=== PATIENT | female | born 1945 | race Caucasian/White ===

== ENCOUNTER 2017-06-04 15:33 | Inpatient (IN) | payer MEDICARE, BC ==
[~2017-06-04] VITALS: Ht 165.1 cm; Wt 102.2 kg
[~2017-06-04 15:33] MED LIST: ABAC300; ALBU90OI61 INH; ALKA-SELTZER D1 EACH PO; ASPI325 PO; ASPI325EC PO; ASPI81EC PO; ATEN100 PO; ATEN25 PO; ATEN50 PO; ATOR10 PO; ATOR40TA PO; AZIT250 PO; Accupril40 MG PO; Augmentin 875-1 EACH PO; BENADRYL25 MG PO; BENZ100A PO; BUTASPCAFT PO; CEPH500 PO; CHOL10002; CIPR500 PO; CITA20 PO; CLON.1 PO; CLON1 PO; COLE1 PO; CYCL10 PO; Catapres0.1 MG PO; Colace100 MG PO; Crutch1 EACH MISC; Cyclobenzaprine5 MG PO; DICL75ER PO; DOCU100 PO; FERR325 PO; FURO40 PO; GABA300 PO; HYDCHL25 PO; HYDCOR1TO TOP; HYDR-86; HYDR1TAB94 PO; LISI5 PO; LORA.5 PO; MELO7.5 PO; METCAR500 PO; METR500 PO; MORP30 PO; Macrobid 100 M100 MG PO; Mobic15 MG PO; NIFE30ER PO; Nifedical Xl30 MG PO; Norco 5-325 Ta1 EACH PO; OMEP20ER PO; ONDA4ODT MM; OXYACE5T PO; Omeprazole20 M1; Omeprazole20 M1 PO; PANT20 PO; POTCHL10ER PO; PRAV20 PO; PRED10 PO; PRED20 PO; PROM25 PO; PYRI100 PO; Pepcid20 MG PO; Percocet 5-3251 EACH PO; Prednisone50 MG PO; Prinivil10 MG PO; QUIN10 PO; TRAZ50 PO; TRIA80TC TOP; VICODIN 5-3001 EACH PO; WARF5 PO; XARELTO20 MG PO; ZOLP10 PO; Zithromax250 MG PO
[2017-06-04 16:01] LABS: BASOPHILS ABSOLUTE AUTO 0.05 K/mm3 (0.00-0.23); BASOPHILS PERCENT AUTO 1 % (0-2); EOSINOPHILS ABSOLUTE AUTO 0.33 K/mm3 (0.00-0.68); EOSINOPHILS PERCENT AUTO 3 % (0-6); IMMATURE GRAN ABSOLUTE AUTO 0.08 K/mm3 (0.00-0.10); IMMATURE GRAN PERCENT AUTO 1 % (0-1); LYMPHOCYTES PERCENT AUTO 13 % (21-46); MONOCYTES ABSOLUTE AUTO 0.52 K/mm3 (0.16-1.47); MONOCYTES PERCENT AUTO 5 % (4-13); Mean Corpuscular HGB 31.8 pg (26.0-34.0); Mean Corpuscular HGB Conc 30.8 g/dL (31.5-36.5); Mean Corpuscular Volume 103 fL (80-100); NEUTROPHILS ABSOLUTE AUTO 7.81 K/mm3 (1.96-9.15); NEUTROPHILS PERCENT AUTO 77 % (41-73); Platelet Count 263 K/mm3 (150-400); RDW Coefficient Variation 14.6 % (11.7-14.2); RDW Standard Deviation 55.1 fL (35.1-46.3); Red Blood Cell Count 3.77 M/mm3 (3.80-5.20); White Blood Cell Count 10.09 K/mm3 (4.00-11.30)
[2017-06-04 16:20] LABS: Albumin, Blood 3.9 g/dL (3.4-5.0); Albumin/Globulin Ratio 1.1 (0.8-1.8); Bilirubin, Total 1.1 mg/dL (0.1-1.0); Bun/Creatinine Ratio 20.9 (12.0-20.0); Calcium, Blood 8.7 mg/dL (8.5-10.1); Creatinine, Blood 2.82 mg/dL (0.40-1.00); Globulin, Blood 3.7 g/dL (2.2-4.0); Potassium, Blood 4.3 mmol/L (3.5-5.5); Total Protein, Blood 7.6 g/dL (6.4-8.2)
[2017-06-04 17:23] LABS: Source, Urine Clean Catch
[2017-06-04 17:26] LABS: Appearance, Urine Hazy (Clear); Bilirubin, Urine Neg (Neg); Blood, Urine Neg (Neg); Color, Urine Yellow (P-Yellow); Glucose Qualitative, Urine Neg (Neg); Ketones, Urine Neg (Neg); Leukocyte Esterase, Urine 3+ (Neg); Nitrite, Urine Neg (Neg); Protein, Urine Neg (Neg); Specific Gravity, Urine 1.015 (1.003-1.022); Urobilinogen, Urine NORM (Normal)
[2017-06-04 17:33] LABS: Red Blood Cells, Urine 0-2 /hpf (0-2)
[2017-06-04 17:34] LABS: Bacteria Mod /hpf; Squamous Epithelial Cells Many /hpf (Few)
[2017-06-04 21:28] LABS: Thyroid Stimulating Hormone 3.71 uIU/mL (0.360-4.800)
[2017-06-05 04:28] LABS: Hematocrit 31.4 % (33.0-51.0); Hemoglobin 9.8 g/dL (11.5-16.0)
[2017-06-05 04:54] LABS: Magnesium, Blood 2.6 mg/dL (1.6-2.4)
[2017-06-05 04:56] LABS: Albumin, Blood 2.9 g/dL (3.4-5.0); Anion Gap 11 mmol/L (6-16); Blood Urea Nitrogen 48 mg/dL (8-24); Bun/Creatinine Ratio 22.2 (12.0-20.0); CO2, Blood 21 mmol/L (21-32); Chloride, Blood 110 mmol/L (98-108); Creatinine, Blood 2.16 mg/dL (0.40-1.00); Glomerular Filtration Rate 24 (60-); Glucose, Blood 98 mg/dL (70-99); Phosphorus, Blood 4.4 mg/dL (2.5-4.9); Potassium, Blood 4.4 mmol/L (3.5-5.5); Sodium, Blood 142 mmol/L (136-145)
[2017-06-05] MEDS ORDERED: GUAI600T33 PO (10:22)
[2017-06-05] MEDS ORDERED: LORA.5 PO (10:33)
[2017-06-05] MEDS ORDERED: DIVA500ER PO (10:35)
[2017-06-05] MEDS ORDERED: CLON.1 PO (10:39)
[2017-06-05 15:32] LABS: Valproic Acid 28.2 ug/mL (50.0-100.0)
[2017-06-06 07:15] LABS: Albumin, Blood 2.8 g/dL (3.4-5.0); Anion Gap 5 mmol/L (6-16); Blood Urea Nitrogen 32 mg/dL (8-24); Bun/Creatinine Ratio 24.1 (12.0-20.0); CO2, Blood 24 mmol/L (21-32); Calcium, Blood 8.5 mg/dL (8.5-10.1); Chloride, Blood 114 mmol/L (98-108); Creatinine, Blood 1.33 mg/dL (0.40-1.00); Glomerular Filtration Rate 41 (60-); Glucose, Blood 119 mg/dL (70-99); Magnesium, Blood 2.5 mg/dL (1.6-2.4); Phosphorus, Blood 2.7 mg/dL (2.5-4.9); Potassium, Blood 5.3 mmol/L (3.5-5.5); Sodium, Blood 143 mmol/L (136-145)
[2017-06-07 05:04] LABS: Hematocrit 34.2 % (33.0-51.0); Hemoglobin 11.1 g/dL (11.5-16.0)
[2017-06-07 05:34] LABS: Albumin, Blood 2.9 g/dL (3.4-5.0); Anion Gap 7 mmol/L (6-16); Blood Urea Nitrogen 23 mg/dL (8-24); Bun/Creatinine Ratio 21.1 (12.0-20.0); CO2, Blood 24 mmol/L (21-32); Calcium, Blood 8.6 mg/dL (8.5-10.1); Chloride, Blood 112 mmol/L (98-108); Creatinine, Blood 1.09 mg/dL (0.40-1.00); Glomerular Filtration Rate 52 (60-); Glucose, Blood 87 mg/dL (70-99); Magnesium, Blood 2.3 mg/dL (1.6-2.4); Phosphorus, Blood 2.4 mg/dL (2.5-4.9); Potassium, Blood 5.3 mmol/L (3.5-5.5); Sodium, Blood 143 mmol/L (136-145)
[2017-06-08 06:32] LABS: Albumin, Blood 3.2 g/dL (3.4-5.0); Anion Gap 6 mmol/L (6-16); Blood Urea Nitrogen 18 mg/dL (8-24); Bun/Creatinine Ratio 16.2 (12.0-20.0); CO2, Blood 28 mmol/L (21-32); Calcium, Blood 8.9 mg/dL (8.5-10.1); Chloride, Blood 106 mmol/L (98-108); Creatinine, Blood 1.11 mg/dL (0.40-1.00); Glomerular Filtration Rate 51 (60-); Glucose, Blood 108 mg/dL (70-99); Magnesium, Blood 2.3 mg/dL (1.6-2.4); Phosphorus, Blood 3.6 mg/dL (2.5-4.9); Potassium, Blood 4.9 mmol/L (3.5-5.5); Sodium, Blood 140 mmol/L (136-145)
[2017-06-09 04:56] LABS: Hematocrit 35.9 % (33.0-51.0); Hemoglobin 11.9 g/dL (11.5-16.0)
[2017-06-09 05:22] LABS: Albumin, Blood 2.9 g/dL (3.4-5.0); Anion Gap 9 mmol/L (6-16); Blood Urea Nitrogen 18 mg/dL (8-24); Bun/Creatinine Ratio 17.1 (12.0-20.0); CO2, Blood 24 mmol/L (21-32); Calcium, Blood 8.8 mg/dL (8.5-10.1); Chloride, Blood 107 mmol/L (98-108); Creatinine, Blood 1.05 mg/dL (0.40-1.00); Glomerular Filtration Rate 54 (60-); Glucose, Blood 90 mg/dL (70-99); Magnesium, Blood 2.4 mg/dL (1.6-2.4); Phosphorus, Blood 3.8 mg/dL (2.5-4.9); Potassium, Blood 4.7 mmol/L (3.5-5.5); Sodium, Blood 140 mmol/L (136-145)
[2017-06-09] MEDS ORDERED: Tylenol325 MG PO (11:01)
[2017-06-09] MEDS ORDERED: Esgic Tablet1 EACH PO (11:02)
== END 2017-06-09 16:12 | disposition home or self-care (01) | DRG 682 ==
LOC: ER 15:33 → MEDS 15:34 → ENPENDDIS 06-09 09:52 → MEDS 06-09 16:12
PROVIDERS: Emergency Medicine; Family Medicine; Internal Medicine; Internal Medicine Nephrology
DX: N17.0 Acute kidney failure with tubular necrosis (principal); G93.41 Metabolic encephalopathy; I50.32 Chronic diastolic (congestive) heart failure; I13.0 Hypertensive heart and chronic kidney disease with heart failure and stage 1 through stage 4 chronic kidney disease, or unspecified chronic kidney disease; E88.09 Other disorders of plasma-protein metabolism, not elsewhere classified; E83.41 Hypermagnesemia; E83.39 Other disorders of phosphorus metabolism; D63.1 Anemia in chronic kidney disease; N18.3 Chronic kidney disease, stage 3 (moderate); D75.89 Other specified diseases of blood and blood-forming organs; R55 Syncope and collapse; R82.71 Bacteriuria; G89.29 Other chronic pain; M54.5 Low back pain; L25.9 Unspecified contact dermatitis, unspecified cause; Z90.49 Acquired absence of other specified parts of digestive tract; Z90.710 Acquired absence of both cervix and uterus; Z96.612 Presence of left artificial shoulder joint; Z96.611 Presence of right artificial shoulder joint; Z86.73 Personal history of transient ischemic attack (TIA), and cerebral infarction without residual deficits; Z79.02 Long term (current) use of antithrombotics/antiplatelets
CPT/HCPCS: 36415; 71046; 76770; 80048; 80053; 80069; 80164; 81001; 82607; 82746; 83735; 84443; 84484; 85014; 85018; 85025; 86850; 86900; 86901; 87086; 93005; 93010; 94760; 96361; 96365; 96376; 97116; 97161; 97166; 97530; 97535; 99285; G0378; G0515; G8978; G8979; G8987; G8988; J0696; J7030; J7060

== ENCOUNTER 2017-09-06 09:29 | Day surgery (SDC) | payer MEDICARE, BC ==
[2017-09-04 16:44] LABS: BASOPHILS ABSOLUTE AUTO 0.04 K/mm3 (0.00-0.23); BASOPHILS PERCENT AUTO 1 % (0-2); EOSINOPHILS ABSOLUTE AUTO 0.34 K/mm3 (0.00-0.68); EOSINOPHILS PERCENT AUTO 6 % (0-6); Hemoglobin 12.1 g/dL (11.5-16.0); IMMATURE GRAN ABSOLUTE AUTO 0.02 K/mm3 (0.00-0.10); IMMATURE GRAN PERCENT AUTO 0 % (0-1); LYMPHOCYTES ABSOLUTE AUTO 1.03 K/mm3 (0.84-5.20); LYMPHOCYTES PERCENT AUTO 17 % (21-46); MONOCYTES ABSOLUTE AUTO 0.57 K/mm3 (0.16-1.47); MONOCYTES PERCENT AUTO 9 % (4-13); Mean Corpuscular HGB Conc 32.7 g/dL (31.5-36.5); Mean Corpuscular Volume 98 fL (80-100); Mean Platelet Volume 9.9 fL (9.1-12.4); NEUTROPHILS ABSOLUTE AUTO 4.07 K/mm3 (1.96-9.15); NEUTROPHILS PERCENT AUTO 67 % (41-73); Platelet Count 209 K/mm3 (150-400); RDW Coefficient Variation 13.4 % (11.7-14.2); RDW Standard Deviation 47.7 fL (35.1-46.3); Red Blood Cell Count 3.78 M/mm3 (3.80-5.20); White Blood Cell Count 6.07 K/mm3 (4.00-11.30)
[2017-09-04 16:57] LABS: Prothrombin Time Results 10.3 Sec (9.7-11.5)
[2017-09-04 17:08] LABS: Albumin, Blood 3.7 g/dL (3.4-5.0); Albumin/Globulin Ratio 1.1 (0.8-1.8); Bilirubin, Total 1.4 mg/dL (0.1-1.0); Bun/Creatinine Ratio 16.2 (12.0-20.0); Calcium, Blood 9.2 mg/dL (8.5-10.1); Creatinine, Blood 1.17 mg/dL (0.40-1.00); Globulin, Blood 3.5 g/dL (2.2-4.0); Potassium, Blood 4.2 mmol/L (3.5-5.5); Total Protein, Blood 7.2 g/dL (6.4-8.2)
[~2017-09-06 09:29] MED LIST changes: +DIVA500ER PO; +Esgic Tablet1 EACH PO; +GUAI600T33 PO; +Tylenol325 MG PO
== END 2017-09-06 22:38 | disposition home or self-care (01) ==
LOC: RAD 09:29 → CT 10:00 → RAD 22:38 → MOI MRI 09-11 14:00 → CT 09-21 10:00 → EDSTATUS 09-21 10:00
PROVIDERS: Internal Medicine Hematology & Oncology
PROC: BR29YZZ Computerized Tomography (CT Scan) of Lumbar Spine using Other Contrast (ICD-10-PCS; principal; 2017-09-06)
DX: M47.26 Other spondylosis with radiculopathy, lumbar region (principal); D68.9 Coagulation defect, unspecified; M48.061 Spinal stenosis, lumbar region without neurogenic claudication; M43.16 Spondylolisthesis, lumbar region; Z87.891 Personal history of nicotine dependence
CPT/HCPCS: 36415; 62304; 72132; 80053; 85025; 85610; 85730; Q9966

== ENCOUNTER → 2018-02-27 | Outpatient (CLI) | payer MEDICARE, BC ==
[~2018-02-27] MED LIST changes: +ACID REDUCER20 MG PO; +ALBU90OI INH; +Advair Hfa 230-12 GM INH; +BACL10 PO; +DELTASONE20 MG PO; +LIOT5 PO; +OXYC10TA19 PO; +PROM25
== END | disposition home or self-care (01) ==
LOC: LAB SHORT 10:00 → LAB 10:00
DX: R19.7 Diarrhea, unspecified (principal)
CPT/HCPCS: 87493

== ENCOUNTER 2018-03-01 14:47 | Emergency (ER) | payer MEDICARE, BC ==
[~2018-03-01] VITALS: Ht 160 cm; Wt 90.7 kg
[~2018-03-01 14:47] MED LIST changes: -ACID REDUCER20 MG PO; -PROM25
[2018-03-01] MEDS ORDERED: TRAZ50 PO (15:34)
[2018-03-01] MEDS ORDERED: BACL10 PO (15:35)
[2018-03-01] MEDS ORDERED: PROM25 (15:35)
[2018-03-01 15:44] LABS: BASOPHILS ABSOLUTE AUTO 0.05 K/mm3 (0.00-0.23); BASOPHILS PERCENT AUTO 1 % (0-2); EOSINOPHILS ABSOLUTE AUTO 0.25 K/mm3 (0.00-0.68); EOSINOPHILS PERCENT AUTO 2 % (0-6); Hematocrit 40.9 % (33.0-51.0); IMMATURE GRAN ABSOLUTE AUTO 0.06 K/mm3 (0.00-0.10); IMMATURE GRAN PERCENT AUTO 1 % (0-1); LYMPHOCYTES ABSOLUTE AUTO 1.35 K/mm3 (0.84-5.20); LYMPHOCYTES PERCENT AUTO 13 % (21-46); MONOCYTES PERCENT AUTO 6 % (4-13); Mean Corpuscular HGB 29.9 pg (26.0-34.0); Mean Corpuscular HGB Conc 31.8 g/dL (31.5-36.5); Mean Corpuscular Volume 94 fL (80-100); NEUTROPHILS ABSOLUTE AUTO 7.97 K/mm3 (1.96-9.15); NEUTROPHILS PERCENT AUTO 78 % (41-73); Platelet Count 244 K/mm3 (150-400); RDW Coefficient Variation 15.9 % (11.7-14.2); RDW Standard Deviation 54.1 fL (35.1-46.3); Red Blood Cell Count 4.35 M/mm3 (3.80-5.20); White Blood Cell Count 10.28 K/mm3 (4.00-11.30)
[2018-03-01 16:00] LABS: Alanine Aminotransfer (ALT/SGP 36 U/L (12-78); Albumin, Blood 3.9 g/dL (3.4-5.0); Alk Phos 127 U/L (50-136); Anion Gap 8 mmol/L (6-16); Aspartate Aminotrans (AST/SGOT 25 U/L (12-37); Blood Urea Nitrogen 15 mg/dL (8-24); Bun/Creatinine Ratio 13.2 (12.0-20.0); CO2, Blood 22 mmol/L (21-32); Calcium, Blood 9.5 mg/dL (8.5-10.1); Chloride, Blood 113 mmol/L (98-108); Creatinine, Blood 1.14 mg/dL (0.40-1.00); Glomerular Filtration Rate 49 (60-); Glucose, Blood 85 mg/dL (70-99); Potassium, Blood 4.2 mmol/L (3.5-5.5); Sodium, Blood 143 mmol/L (136-145); Total Protein, Blood 7.9 g/dL (6.4-8.2); Troponin I <0.015 ng/mL (0.000-0.040)
[2018-03-01 16:32] LABS: Source, Urine Clean Catch
[2018-03-01 16:38] LABS: Bilirubin, Urine Neg (Neg); Blood, Urine 1+ (Neg); Glucose Qualitative, Urine Neg (Neg); Ketones, Urine Neg (Neg); Leukocyte Esterase, Urine Neg (Neg); Nitrite, Urine Neg (Neg); Protein, Urine 2+ (Neg); Urobilinogen, Urine NORM (Normal)
[2018-03-01 16:53] LABS: Appearance, Urine Clear (Clear); Color, Urine Yellow (P-Yellow)
[2018-03-01 16:55] LABS: Bacteria Not Seen /hpf; Red Blood Cells, Urine Not Seen /hpf (0-2); Squamous Epithelial Cells Few /hpf (Few); White Blood Cells, Urine 0-2 /hpf (0-5)
[2018-03-01] MEDS ORDERED: ACID REDUCER20 MG PO (17:26)
[2018-03-01] MEDS ORDERED: ONDA4ODT MM (17:26)
== END 2018-03-01 18:09 | disposition home or self-care (01) ==
LOC: ER 14:47
PROVIDERS: Emergency Medicine
DX: K29.70 Gastritis, unspecified, without bleeding (principal); K29.80 Duodenitis without bleeding; I10 Essential (primary) hypertension; I48.91 Unspecified atrial fibrillation; Z88.2 Allergy status to sulfonamides; Z91.048 Other nonmedicinal substance allergy status; Z91.040 Latex allergy status; Z88.8 Allergy status to other drugs, medicaments and biological substances; Z79.899 Other long term (current) drug therapy
CPT/HCPCS: 36415; 73562-RT; 74177; 80053; 81001; 83690; 84484; 85025; 96361; 96374; 96375; 99284-25; J2405; J3010; J7030; Q9967

== ENCOUNTER 2018-04-10 09:10 | Day surgery (SDC) | payer MEDICARE, BC ==
[~2018-04-10] VITALS: Ht 162.6 cm; Wt 91.3 kg
[~2018-04-10 09:10] MED LIST changes: +ACID REDUCER20 MG PO; +PROM25
[2018-04-10] MEDS ORDERED: CLON.1 (10:27)
[2018-04-10] MEDS ORDERED: FURO40 (10:27)
[2018-04-10] MEDS ORDERED: Prinivil10 MG (10:28)
== END 2018-04-10 12:30 | disposition home or self-care (01) ==
LOC: ORSCSDS 09:10
PROVIDERS: Internal Medicine Gastroenterology
PROC: 0DB98ZX Excision of Duodenum, Via Natural or Artificial Opening Endoscopic, Diagnostic (ICD-10-PCS; principal; 2018-04-10 10:30)
PROC: 0DBE8ZX Excision of Large Intestine, Via Natural or Artificial Opening Endoscopic, Diagnostic (ICD-10-PCS; principal; 2018-04-10 10:30)
PROC: 0DBL8ZX Excision of Transverse Colon, Via Natural or Artificial Opening Endoscopic, Diagnostic (ICD-10-PCS; principal; 2018-04-10 10:30)
PROC: 0DB68ZX Excision of Stomach, Via Natural or Artificial Opening Endoscopic, Diagnostic (ICD-10-PCS; principal; 2018-04-10 10:30)
DX: R19.7 Diarrhea, unspecified (principal); D12.3 Benign neoplasm of transverse colon; K64.8 Other hemorrhoids; K57.30 Diverticulosis of large intestine without perforation or abscess without bleeding; R10.9 Unspecified abdominal pain; R63.4 Abnormal weight loss; Z86.010 Personal history of colon polyps; Z86.718 Personal history of other venous thrombosis and embolism; I10 Essential (primary) hypertension; Z96.89 Presence of other specified functional implants; I69.354 Hemiplegia and hemiparesis following cerebral infarction affecting left non-dominant side; F41.8 Other specified anxiety disorders; Z87.891 Personal history of nicotine dependence; Z79.899 Other long term (current) drug therapy
CPT/HCPCS: 88305; 88342; J7120

== ENCOUNTER 2018-06-07 09:48 | Emergency (ER) | payer MEDICARE, BC ==
[~2018-06-07] VITALS: Ht 162.6 cm; Wt 89.8 kg
[~2018-06-07 09:48] MED LIST changes: +CLON.1; +FURO40; +LIDO700A20 TOP; +Prinivil10 MG; +Roxicodone5 MG PO
[2018-06-07] MEDS ORDERED: ACYC800 PO (11:37)
[2018-06-07] MEDS ORDERED: Neurontin 300300 MG PO (11:37)
[2018-06-07] MEDS ORDERED: Percocet 10-321 EACH PO (11:37)
== END 2018-06-07 11:51 | disposition home or self-care (01) ==
LOC: ER 09:48
DX: B01.9 Varicella without complication (principal); B02.9 Zoster without complications; Z88.2 Allergy status to sulfonamides; Z91.040 Latex allergy status; Z88.8 Allergy status to other drugs, medicaments and biological substances; Z79.899 Other long term (current) drug therapy; I10 Essential (primary) hypertension; I48.91 Unspecified atrial fibrillation
CPT/HCPCS: 96374; 96375; 99284-25; J1170; J2405

== ENCOUNTER 2018-07-05 13:43 | Emergency (ER) | payer MEDICARE, BC ==
[~2018-07-05] VITALS: Ht 160 cm; Wt 90.7 kg
[~2018-07-05 13:43] MED LIST changes: +ACYC800 PO; +Neurontin 300300 MG PO; +Percocet 10-321 EACH PO
[2018-07-05 14:29] LABS: BASOPHILS ABSOLUTE AUTO 0.03 K/mm3 (0.00-0.23); BASOPHILS PERCENT AUTO 0 % (0-2); EOSINOPHILS ABSOLUTE AUTO 0.03 K/mm3 (0.00-0.68); EOSINOPHILS PERCENT AUTO 0 % (0-6); Hematocrit 38.5 % (33.0-51.0); Hemoglobin 12.7 g/dL (11.5-16.0); IMMATURE GRAN ABSOLUTE AUTO 0.14 K/mm3 (0.00-0.10); IMMATURE GRAN PERCENT AUTO 2 % (0-1); LYMPHOCYTES ABSOLUTE AUTO 0.57 K/mm3 (0.84-5.20); LYMPHOCYTES PERCENT AUTO 7 % (21-46); MONOCYTES ABSOLUTE AUTO 0.12 K/mm3 (0.16-1.47); MONOCYTES PERCENT AUTO 2 % (4-13); Mean Corpuscular HGB 33.6 pg (26.0-34.0); Mean Corpuscular Volume 102 fL (80-100); Mean Platelet Volume 10.3 fL (9.1-12.4); NEUTROPHILS ABSOLUTE AUTO 7.16 K/mm3 (1.96-9.15); NEUTROPHILS PERCENT AUTO 89 % (41-73); Platelet Count 239 K/mm3 (150-400); RDW Coefficient Variation 13.1 % (11.7-14.2); RDW Standard Deviation 49.2 fL (35.1-46.3); Red Blood Cell Count 3.78 M/mm3 (3.80-5.20); White Blood Cell Count 8.05 K/mm3 (4.00-11.30)
[2018-07-05] MEDS ORDERED: OXYC10TA19 PO (14:44)
[2018-07-05] MEDS ORDERED: TRAZ50 PO (14:45)
[2018-07-05] MEDS ORDERED: LIOT5 PO (14:45)
[2018-07-05] MEDS ORDERED: DOXY100T53 PO (14:46)
[2018-07-05] MEDS ORDERED: ALBU90OI INH ×2 (14:46→15:53)
[2018-07-05] MEDS ORDERED: ATEN100 PO (14:46)
[2018-07-05] MEDS ORDERED: PRED20 PO (14:47)
[2018-07-05 15:10] LABS: Albumin, Blood 3.7 g/dL (3.4-5.0); Albumin/Globulin Ratio 0.9 (0.8-1.8); Bilirubin, Total 0.6 mg/dL (0.1-1.0); Bun/Creatinine Ratio 23.1 (12.0-20.0); Calcium, Blood 9.5 mg/dL (8.5-10.1); Creatinine, Blood 1.08 mg/dL (0.40-1.00); Globulin, Blood 4.1 g/dL (2.2-4.0); Potassium, Blood 4.6 mmol/L (3.5-5.5); Total Protein, Blood 7.8 g/dL (6.4-8.2)
[2018-07-05] MEDS ORDERED: Aerochamber1 EACH INH (15:53)
[2018-07-05] MEDS ORDERED: Prednisone20 MG PO (16:21)
== END 2018-07-05 17:00 | disposition home or self-care (01) ==
LOC: ER 13:43
PROVIDERS: Physician Assistant
DX: J40 Bronchitis, not specified as acute or chronic (principal); I10 Essential (primary) hypertension; I48.91 Unspecified atrial fibrillation; Z87.891 Personal history of nicotine dependence
CPT/HCPCS: 36415; 71046; 80053; 83880; 84145; 84484; 85025; 93005; 93010; 94640; 94645; 99285-25; J7120

== ENCOUNTER 2020-05-19 11:45 | Emergency (ER) | payer MEDICARE, BC ==
[~2020-05-19] VITALS: Ht 160 cm; Wt 87.1 kg
[~2020-05-19 11:45] MED LIST changes: +Aerochamber1 EACH INH; +DOXY100T53 PO; +Prednisone20 MG PO
[2020-05-19] MEDS ORDERED: TRAZ100 PO (11:55)
[2020-05-19] MEDS ORDERED: CALC.25 PO (11:56)
[2020-05-19] MEDS ORDERED: OXYC5 PO (11:56)
[2020-05-19 12:57] LABS: BASOPHILS ABSOLUTE AUTO 0.05 K/mm3 (0.00-0.23); BASOPHILS PERCENT AUTO 1 % (0-2); EOSINOPHILS ABSOLUTE AUTO 0.08 K/mm3 (0.00-0.68); EOSINOPHILS PERCENT AUTO 1 % (0-6); Hematocrit 34.9 % (33.0-51.0); Hemoglobin 10.8 g/dL (11.5-16.0); IMMATURE GRAN ABSOLUTE AUTO 0.02 K/mm3 (0.00-0.10); IMMATURE GRAN PERCENT AUTO 0 % (0-1); LYMPHOCYTES ABSOLUTE AUTO 1.35 K/mm3 (0.84-5.20); LYMPHOCYTES PERCENT AUTO 16 % (21-46); MONOCYTES ABSOLUTE AUTO 1.02 K/mm3 (0.16-1.47); MONOCYTES PERCENT AUTO 12 % (4-13); Mean Corpuscular HGB 28.8 pg (26.0-34.0); Mean Corpuscular HGB Conc 30.9 g/dL (31.5-36.5); Mean Corpuscular Volume 93 fL (80-100); Mean Platelet Volume 11.1 fL (9.1-12.4); NEUTROPHILS ABSOLUTE AUTO 6.16 K/mm3 (1.96-9.15); NEUTROPHILS PERCENT AUTO 71 % (41-73); Platelet Count 265 K/mm3 (150-400); RDW Standard Deviation 51.4 fL (35.1-46.3); Red Blood Cell Count 3.75 M/mm3 (3.80-5.20); White Blood Cell Count 8.68 K/mm3 (4.00-11.30)
[2020-05-19 13:04] LABS: Alanine Aminotransfer (ALT/SGP 13 U/L (12-78); Albumin/Globulin Ratio 0.8 (0.8-1.8); Alk Phos 98 U/L (50-136); Anion Gap 6 mmol/L (6-16); Aspartate Aminotrans (AST/SGOT 20 U/L (12-37); Bilirubin, Total 0.6 mg/dL (0.1-1.0); Blood Urea Nitrogen 14 mg/dL (8-24); Bun/Creatinine Ratio 12.5 (12.0-20.0); CO2, Blood 26 mmol/L (21-32); Calcium, Blood 9.1 mg/dL (8.5-10.1); Chloride, Blood 108 mmol/L (98-108); Creatinine, Blood 1.12 mg/dL (0.40-1.00); Globulin, Blood 3.8 g/dL (2.2-4.0); Glomerular Filtration Rate 50 (60-); Glucose, Blood 91 mg/dL (70-99); Potassium, Blood 3.4 mmol/L (3.5-5.5); Sodium, Blood 140 mmol/L (136-145); Total Protein, Blood 6.8 g/dL (6.4-8.2); Troponin I <0.015 ng/mL (0.000-0.040)
[2020-05-19] MEDS ORDERED: HYDR1TAB94 PO (14:57)
== END 2020-05-19 16:00 | disposition home or self-care (01) ==
LOC: ER 11:45
PROVIDERS: Emergency Medicine
DX: R07.81 Pleurodynia (principal); I11.0 Hypertensive heart disease with heart failure; I50.9 Heart failure, unspecified; I48.91 Unspecified atrial fibrillation; J44.9 Chronic obstructive pulmonary disease, unspecified; Z88.2 Allergy status to sulfonamides; Z88.8 Allergy status to other drugs, medicaments and biological substances; Z91.09 Other allergy status, other than to drugs and biological substances; Z91.040 Latex allergy status; Z79.899 Other long term (current) drug therapy; Z87.891 Personal history of nicotine dependence
CPT/HCPCS: 36415; 71045; 80053; 83880; 84484; 85025; 93005; 93010; 96374; 99285-25; A9270; J2405

== ENCOUNTER 2020-08-31 11:35 | Observation (INO) | payer MEDICARE, BC ==
[~2020-08-31] VITALS: Ht 160 cm; Wt 82.2 kg
[~2020-08-31 11:35] MED LIST changes: +CALC.25 PO; +OXYC5 PO; +TRAZ100 PO
[2020-08-31] MEDS ORDERED: FUROSEMIDE20 MG PO (11:45)
[2020-08-31 12:10] LABS: Source, Urine Catheter
[2020-08-31 12:28] LABS: BASOPHILS ABSOLUTE AUTO 0.06 K/mm3 (0.00-0.23); BASOPHILS PERCENT AUTO 1 % (0-2); EOSINOPHILS ABSOLUTE AUTO 0.21 K/mm3 (0.00-0.68); EOSINOPHILS PERCENT AUTO 4 % (0-6); Hematocrit 35.7 % (33.0-51.0); Hemoglobin 11.1 g/dL (11.5-16.0); IMMATURE GRAN ABSOLUTE AUTO 0.02 K/mm3 (0.00-0.10); IMMATURE GRAN PERCENT AUTO 0 % (0-1); LYMPHOCYTES ABSOLUTE AUTO 1.37 K/mm3 (0.84-5.20); LYMPHOCYTES PERCENT AUTO 23 % (21-46); MONOCYTES ABSOLUTE AUTO 0.45 K/mm3 (0.16-1.47); MONOCYTES PERCENT AUTO 8 % (4-13); Mean Corpuscular HGB 28.4 pg (26.0-34.0); Mean Corpuscular HGB Conc 31.1 g/dL (31.5-36.5); Mean Corpuscular Volume 91 fL (80-100); Mean Platelet Volume 11.1 fL (9.1-12.4); NEUTROPHILS PERCENT AUTO 64 % (41-73); Platelet Count 224 K/mm3 (150-400); RDW Coefficient Variation 16.3 % (11.7-14.2); RDW Standard Deviation 54.5 fL (35.1-46.3); Red Blood Cell Count 3.91 M/mm3 (3.80-5.20); White Blood Cell Count 5.91 K/mm3 (4.00-11.30)
[2020-08-31 12:29] LABS: Appearance, Urine Clear (Clear); Bilirubin, Urine Neg (Neg); Blood, Urine Neg (Neg); Color, Urine Yellow (P-Yellow); Glucose Qualitative, Urine Neg (Neg); Ketones, Urine Neg (Neg); Leukocyte Esterase, Urine Neg (Neg); Nitrite, Urine Neg (Neg); Protein, Urine Neg (Neg); Specific Gravity, Urine 1.015 (1.003-1.022); Urobilinogen, Urine NORM (Normal)
[2020-08-31 13:01] LABS: Albumin/Globulin Ratio 0.8 (0.8-1.8); Bilirubin, Total 0.5 mg/dL (0.1-1.0); Creatinine, Blood 1.25 mg/dL (0.40-1.00); Globulin, Blood 3.6 g/dL (2.2-4.0); Potassium, Blood 4.3 mmol/L (3.5-5.5); Total Protein, Blood 6.6 g/dL (6.4-8.2)
--- NOTE | 2020-08-31 14:05 | NUR ---
PAL CARE VISIT IN ER#14 Pt requests [facility] on d/c from ER. She will require wc transport home. She needs PT, OT, RN, LEANDRA and SECRETARY TO THE VICE PRESIDENT. She lives with two adult sons, who are not providing assist/care. One "isn't very motivated" per pt and does not drive. Second son Tank Harvey [phone] works in construction and is gone long hours. VO for HH obtained and entered per Dr Muñoz. Pt had fall at home and reports 12-15 falls in the past year. She uses a FWW with seat in her home. She fell this am and could not ambulate after due to injury and pain in L knee. She called 911 and was transported in by EMS. She reports she does not have a ride home. She has had HH in the past and is agreeable to HH now. She wanted to be admitted but does not meet acute care criteria for admission. This was explained in detail to pt. 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 She rates her L knee pain as a 7 currently. Her ELECTRIC TRANSFER OPERATOR was going to check on analgesia orders for her. Pt states she was living with a friend in [place] but had to leave or else "they would no longer be friends". She states she does not have anyone locally who can assist her in the home. We discussed the need for sons to provide some help while in the home. I am unsure that this will happen. HH SECRETARY TO THE VICE PRESIDENT needed to research options for community services, in home help or placement for safer environment for pt medical terminologist. Contacted STEFFEN, Angelique, who will f/u on transmitting HH orders once received, to [facility] per pt preference. Recommend pt have NSAID scheduled and prn analgesic medication on d/c from ER to home. All of above discussed with pt's RN and before leaving the unit. Notified ER and CM staff that pt will need WC transport.
[2020-08-31] MEDS ORDERED: OXYACE7.5T PO (14:22)
[2020-08-31] MEDS ORDERED: CYMBALTA30 M2 PO (14:47)
[2020-08-31] MEDS ORDERED: XARELTO15 MG PO (14:52)
[2020-08-31] MEDS ORDERED: GABA300 PO (15:17)
--- NOTE | 2020-08-31 19:12 | NUR ---
1815 RECEIVED PT TO RM 304 VIA GURNEY FROM ER. A&O. SLIDE TX TO BED. ADMITTED FOR INTRACTABLE PAIN R/T A FALL AT HOME; L KNEE HEMATOMA. PER REPORT FROM RACHEL MORGAN, 15-20cc WAS ASPIRATED FROM L KNEE IN ER. PT WITH HX OF FALLS, HTN, CVA X2, GIB, A-FIB, DVT, AND COVID. MARIE CATH PLACED IN ER; PATENT AND DRAINING CL YELLOW URINE. DINNER TRAY ORDERED AND GIVEN. PT MEDICATED FOR C/O PAIN, PER EMAR. REPORT GIVEN TO MARY GRACE MORGAN.
[2020-09-01 04:52] LABS: BASOPHILS ABSOLUTE AUTO 0.03 K/mm3 (0.00-0.23); BASOPHILS PERCENT AUTO 1 % (0-2); EOSINOPHILS ABSOLUTE AUTO 0.21 K/mm3 (0.00-0.68); EOSINOPHILS PERCENT AUTO 4 % (0-6); Hemoglobin 10.4 g/dL (11.5-16.0); IMMATURE GRAN ABSOLUTE AUTO 0.01 K/mm3 (0.00-0.10); IMMATURE GRAN PERCENT AUTO 0 % (0-1); LYMPHOCYTES ABSOLUTE AUTO 1.64 K/mm3 (0.84-5.20); LYMPHOCYTES PERCENT AUTO 35 % (21-46); MONOCYTES ABSOLUTE AUTO 0.38 K/mm3 (0.16-1.47); MONOCYTES PERCENT AUTO 8 % (4-13); Mean Corpuscular HGB 28.7 pg (26.0-34.0); Mean Corpuscular HGB Conc 31.5 g/dL (31.5-36.5); Mean Corpuscular Volume 91 fL (80-100); Mean Platelet Volume 11.2 fL (9.1-12.4); NEUTROPHILS ABSOLUTE AUTO 2.48 K/mm3 (1.96-9.15); NEUTROPHILS PERCENT AUTO 52 % (41-73); Platelet Count 227 K/mm3 (150-400); RDW Coefficient Variation 16.2 % (11.7-14.2); RDW Standard Deviation 54.4 fL (35.1-46.3); Red Blood Cell Count 3.63 M/mm3 (3.80-5.20); White Blood Cell Count 4.75 K/mm3 (4.00-11.30)
[2020-09-01 05:15] LABS: Albumin, Blood 2.9 g/dL (3.4-5.0); Albumin/Globulin Ratio 0.9 (0.8-1.8); Bilirubin, Total 0.4 mg/dL (0.1-1.0); Bun/Creatinine Ratio 15.6 (12.0-20.0); Calcium, Blood 8.7 mg/dL (8.5-10.1); Creatinine, Blood 1.41 mg/dL (0.40-1.00); Globulin, Blood 3.1 g/dL (2.2-4.0)
--- NOTE | 2020-09-01 05:18 | NUR ---
RADIOLOGY PRACTITIONER ASSISTANT SUMMARY NO ACUTE CHANGES THIS SHIFT. PT AAOX4 AND PLEASANT. FELL AT HOME AND HAS HEMATOMA ON L KNEE/THIGH AREA WITH PRESSURE DRESSING WRAPPED AROUND IT. PT REPORTS PAIN OF L KNEE AND L SIDE RIBS FROM FALL. MEDICATED FOR PAIN AT START OF SHIFT PER EMAR. MARIE CATH IN PLACE DRAINING CLEAR YELLOW URINE. VSS, WILL CONTINUE TO MONITOR.
--- NOTE | 2020-09-01 16:39 | NUR ---
SHIFT SUMMARY PT IS A&O, PLEASANT AND CO-OP. SEEMS TO BE IMPROVING SINCE ADMIT YESTERDAY. PT WAS ABLE TO GET UP WITH THERAPY TODAY AND TX TO CHAIR AND BSC NEEDED. MARIE CATH REMOVED AT 10:00 THIS AM, PER PT REQUEST. VOIDING W/O DIFFICULTY. MEDICATED FOR C/O PAIN TO L KNEE AND L SIDE. BRUISING AND SWELLING TO L KNEE. EDUAR WRAP ON. LIDOCAINE PATCH TO L SIDE. PT WATCHING TV AND TALKING ON PHONE OFF AND ON ALL DAY. CALL LT IN REACH. ABLE TO MAKE NEEDS KNOWN.
--- NOTE | 2020-09-02 04:49 | NUR ---
LEGAL SECRETARY SUMMARY PT AAOX4 AND PLEASANT. STILL COMPLAINS OF PAIN OF LEFT LEG AND RIB AREA. PT HAS BEEN ABLE TO AMBULATE TO THE BSC WITH A STANDBY ASSIST WHICH IS AN IMPROVEMENT PT WAS TOO PAINFUL YESTERDAY TO DO THAT. PT HAS SLEPT WELL MOST OF THE SHIFT. VSS, WILL CONTINUE TO MONITOR.
[2020-09-02 05:01] LABS: Hematocrit 32.7 % (33.0-51.0); Hemoglobin 10.3 g/dL (11.5-16.0); Mean Corpuscular HGB 28.9 pg (26.0-34.0); Mean Corpuscular HGB Conc 31.5 g/dL (31.5-36.5); Mean Corpuscular Volume 92 fL (80-100); Mean Platelet Volume 11.3 fL (9.1-12.4); Platelet Count 214 K/mm3 (150-400); RDW Coefficient Variation 15.9 % (11.7-14.2); RDW Standard Deviation 53.6 fL (35.1-46.3); Red Blood Cell Count 3.57 M/mm3 (3.80-5.20); White Blood Cell Count 5.09 K/mm3 (4.00-11.30)
[2020-09-02 05:23] LABS: Albumin, Blood 2.9 g/dL (3.4-5.0); Albumin/Globulin Ratio 0.9 (0.8-1.8); Bilirubin, Total 0.3 mg/dL (0.1-1.0); Bun/Creatinine Ratio 16.5 (12.0-20.0); Calcium, Blood 8.9 mg/dL (8.5-10.1); Creatinine, Blood 1.33 mg/dL (0.40-1.00); Globulin, Blood 3.1 g/dL (2.2-4.0); Magnesium, Blood 2.1 mg/dL (1.6-2.4); Percent Saturation 11.7 % (15.0-50.0); Potassium, Blood 3.9 mmol/L (3.5-5.5)
--- NOTE | 2020-09-02 14:30 | NUR ---
Attempted visit earlier and pt was working with PT/OT at that time. Spoke with RN who states plan remains for transfer to SNF tomorrow.
--- NOTE | 2020-09-02 18:31 | NUR ---
SHIFT SUMMARY NO ACUTE CHANGES T/O SHIFT, COOPERATIVE c CARE. PT REPORTS CONTINUOUS PAIN ON THE LEFT SIDE RELATED TO HER FALL. TREATED PRN PER EMAR. PT HAD A NOSE BLEED THIS AM FOR APPROX 10 MINS, PT IS ON XARELTO. PROVIDER INFORMED. NO NOSE BLEEDS REMAINDER OF SHIFT. PT LIKELY TO DC TO SNF TOMORROW, PREFERS SNF IN [place], [facility] AWARE. PT IS CURRENTLY SITTING IN HER CHAIR, CALL LIGHT WITHIN REACH. CALLS APPROPRIATELY.
--- NOTE | 2020-09-03 04:14 | NUR ---
SHIFT SUMMARY NO ACUTE CHANGES THIS SHIFT, MEDICATED 2X FOR L RIB & L KNEE PAIN, NO OTHER C/O ANY KIND, SLEPT T/O THE NIGHT & SLEEPING AT THIS TIME, CALL LIGHT IN REACH, BED ALARM ACTIVE, WILL CONT TO MONITOR UNTIL REPORT GIVEN TO DAY RN.
[2020-09-03 04:42] LABS: Hematocrit 31.7 % (33.0-51.0); Mean Corpuscular HGB 28.7 pg (26.0-34.0); Mean Corpuscular HGB Conc 31.5 g/dL (31.5-36.5); Mean Corpuscular Volume 91 fL (80-100); Mean Platelet Volume 10.9 fL (9.1-12.4); Platelet Count 224 K/mm3 (150-400); RDW Coefficient Variation 16.1 % (11.7-14.2); RDW Standard Deviation 53.1 fL (35.1-46.3); Red Blood Cell Count 3.49 M/mm3 (3.80-5.20); White Blood Cell Count 5.45 K/mm3 (4.00-11.30)
[2020-09-03 05:08] LABS: Albumin, Blood 2.9 g/dL (3.4-5.0); Albumin/Globulin Ratio 0.9 (0.8-1.8); Bilirubin, Total 0.5 mg/dL (0.1-1.0); Bun/Creatinine Ratio 15.9 (12.0-20.0); Creatinine, Blood 1.32 mg/dL (0.40-1.00); Globulin, Blood 3.2 g/dL (2.2-4.0); Potassium, Blood 4.3 mmol/L (3.5-5.5); Total Protein, Blood 6.1 g/dL (6.4-8.2)
--- NOTE | 2020-09-03 10:41 | NUR ---
LEFT THUMB: PATIENT REPORTS THAT HER LEFT THUMB IS VERY PAINFUL AND THAT SHE IS UNABLE TO MOVE IT WITH THE NORMAL RANGE OF MOTION. LEFT THUMB IS PINK, WARM, AND HAS SENSATION. PATIENT IS ABLE TO WIGGLE IT SLIGHTLY. IT DOES APPEAR DIFFERENT FROM THE RIGHT THUMB. PATIENT ATTEMPTED TO PERFORM ROM OF LEFT THUMB WITH THE RIGHT HAND. IT WAS VERY PAINFUL FOR THE PATIENT AND SHE WAS UNABLE TO DO SO. DISCUSSED WITH DR. GILBERT. NEW ORDERS TO FOLLOW.
[2020-09-03] MEDS ORDERED: DOCU100 PO (14:25)
[2020-09-03] MEDS ORDERED: SENNA LAXATIVE8.6 MG PO (14:26)
[2020-09-03] MEDS ORDERED: LIDOCAINE1 EAC1 TOP (14:26)
[2020-09-03] MEDS ORDERED: ROXICODONE5 MG PO (14:26)
[2020-09-03 15:32] LABS: SARS-Cov-2 (COVID-19) PCR, MMC NEGATIVE (NEGATIVE)
--- NOTE | 2020-09-03 16:45 | NUR ---
DISCHARGE SUMMARY: PATIENT REPORTED ANXIETY ABOUT GOING TO [facility] AFTER SPEAKING WITH HER GRANDDAUGHTERS. PROVIDED ENCOURAGEMENT AND SUPPORT TO THE PATIENT. DISCUSSED HOW HELPFUL HER MOTIVATION AND HER FAMILY'S INVOLVEMENT IN REGARDS TO HER CARE IS TO ENSURE THAT SHE IMPROVES HER STRENGTH AND HAS A SAFE DISCHARGE. PATIENT REPORTED THAT SHE UNDERSTANDS HER SITUATION AND THAT SHE FEELS BETTER ABOUT HER DISCHARGE PLAN. PATIENT EXPERIENCED A NOSE BLEED THIS MORNING IN THE LEFT NARES. IT RESOLVED IN A FEW MINUTES WITH PRESSURE. PATIENT UP TO THE CHAIR AND BSC. PATIENT WORKED WITH PT. PATIENT CONTINUED TO REPORT PAIN IN HER LEFT SIDE. MEDICATED PER PRNS. PATIENT REPORTED DECREASED MOBILITY IN LEFT THUMB. SEE NURSES' NOTE. PATIENT DISCHARGED WITH TRANSPORT IN WHEELCHAIR. ALL QUESTIONS AND CONCERNS ADDRESSED. REPORT CALLED TO [facility]. PATIENT STABLE AT TIME OF DISCHARGE.
== END 2020-09-03 16:48 ==
LOC: ER 11:35 → MEDS 11:36 → ERHOLD 11:36 → MEDS 18:13
PROVIDERS: Emergency Medicine; Internal Medicine; ADMIT Internal Medicine
DX: S80.02XA Contusion of left knee, initial encounter (principal); M25.462 Effusion, left knee; S70.02XA Contusion of left hip, initial encounter; S20.212A Contusion of left front wall of thorax, initial encounter; W01.190A Fall on same level from slipping, tripping and stumbling with subsequent striking against furniture, initial encounter; I48.91 Unspecified atrial fibrillation; J44.9 Chronic obstructive pulmonary disease, unspecified; I13.0 Hypertensive heart and chronic kidney disease with heart failure and stage 1 through stage 4 chronic kidney disease, or unspecified chronic kidney disease; I50.9 Heart failure, unspecified; N18.30 Chronic kidney disease, stage 3 unspecified; D63.1 Anemia in chronic kidney disease; Z20.822 Contact with and (suspected) exposure to COVID-19; Z91.040 Latex allergy status; Z88.2 Allergy status to sulfonamides; Z88.8 Allergy status to other drugs, medicaments and biological substances; Z91.09 Other allergy status, other than to drugs and biological substances; Z86.73 Personal history of transient ischemic attack (TIA), and cerebral infarction without residual deficits; Z86.16 Personal history of COVID-19; Z86.718 Personal history of other venous thrombosis and embolism; Z87.891 Personal history of nicotine dependence; Z79.01 Long term (current) use of anticoagulants; Z96.653 Presence of artificial knee joint, bilateral; Z86.711 Personal history of pulmonary embolism
CPT/HCPCS: 20610; 36415; 51702; 71045; 73120; 73502; 73562-LT; 80053; 81003; 82728; 83540; 83550; 83735; 85025; 85027; 94760; 96374-59; 96375; 96375-59; 96376; 97116; 97162; 97166; 97530; 97535; 99285-25; A9270; G0378; J2270; J2405; J2916; J3010; J7050; U0004

== ENCOUNTER 2021-02-12 13:27 | Emergency (ER) | payer MEDICARE, BC ==
[~2021-02-12] VITALS: Ht 160 cm; Wt 81.7 kg
[~2021-02-12 13:27] MED LIST changes: +CYMBALTA30 M2 PO; +FUROSEMIDE20 MG PO; +LIDOCAINE1 EAC1 TOP; +OXYACE7.5T PO; +ROXICODONE5 MG PO; +SENNA LAXATIVE8.6 MG PO; +XARELTO15 MG PO
[2021-02-12 14:03] LABS: BASOPHILS ABSOLUTE AUTO 0.05 K/mm3 (0.00-0.23); BASOPHILS PERCENT AUTO 1 % (0-2); EOSINOPHILS PERCENT AUTO 5 % (0-6); Hematocrit 38.8 % (33.0-51.0); Hemoglobin 12.2 g/dL (11.5-16.0); IMMATURE GRAN ABSOLUTE AUTO 0.01 K/mm3 (0.00-0.10); IMMATURE GRAN PERCENT AUTO 0 % (0-1); LYMPHOCYTES PERCENT AUTO 19 % (21-46); MONOCYTES ABSOLUTE AUTO 0.45 K/mm3 (0.16-1.47); MONOCYTES PERCENT AUTO 8 % (4-13); Mean Corpuscular HGB 28.7 pg (26.0-34.0); Mean Corpuscular HGB Conc 31.4 g/dL (31.5-36.5); Mean Corpuscular Volume 91 fL (80-100); Mean Platelet Volume 9.8 fL (9.1-12.4); NEUTROPHILS ABSOLUTE AUTO 3.83 K/mm3 (1.96-9.15); NEUTROPHILS PERCENT AUTO 67 % (41-73); Platelet Count 276 K/mm3 (150-400); RDW Coefficient Variation 15.1 % (11.7-14.2); RDW Standard Deviation 49.9 fL (35.1-46.3); Red Blood Cell Count 4.25 M/mm3 (3.80-5.20); White Blood Cell Count 5.74 K/mm3 (4.00-11.30)
[2021-02-12 14:25] LABS: Alanine Aminotransfer (ALT/SGP 12 U/L (12-78); Albumin, Blood 3.1 g/dL (3.4-5.0); Albumin/Globulin Ratio 0.9 (0.8-1.8); Alk Phos 97 U/L (50-136); Anion Gap 5 mmol/L (6-16); Aspartate Aminotrans (AST/SGOT 17 U/L (12-37); Bilirubin, Total 1.2 mg/dL (0.1-1.0); Blood Urea Nitrogen 11 mg/dL (8-24); Bun/Creatinine Ratio 11.2 (12.0-20.0); CO2, Blood 27 mmol/L (21-32); Calcium, Blood 8.7 mg/dL (8.5-10.1); Chloride, Blood 110 mmol/L (98-108); Creatinine, Blood 0.98 mg/dL (0.40-1.00); Globulin, Blood 3.6 g/dL (2.2-4.0); Glomerular Filtration Rate 55 (60-); Glucose, Blood 96 mg/dL (70-99); Potassium, Blood 3.4 mmol/L (3.5-5.5); Sodium, Blood 142 mmol/L (136-145); Total Protein, Blood 6.7 g/dL (6.4-8.2); Troponin I <0.015 ng/mL (0.000-0.040)
[2021-02-12 16:40] LABS: Source, Urine Clean Catch
[2021-02-12 16:45] LABS: Appearance, Urine Clear (Clear); Bilirubin, Urine Neg (Neg); Blood, Urine Neg (Neg); Color, Urine Yellow (P-Yellow); Glucose Qualitative, Urine Neg (Neg); Ketones, Urine Neg (Neg); Leukocyte Esterase, Urine 1+ (Neg); Nitrite, Urine Neg (Neg); Protein, Urine 1+ (Neg); Urobilinogen, Urine NORM (Normal)
[2021-02-12 16:55] LABS: Mucus Light (0-Heavy); Red Blood Cells, Urine 0-2 /hpf (0-2); Squamous Epithelial Cells Few /hpf (Few)
[2021-02-12 16:56] LABS: Bacteria Few /hpf
[2021-02-12] MEDS ORDERED: ONDA4ODT MM (17:02)
== END 2021-02-12 17:21 | disposition home or self-care (01) ==
LOC: ER 13:27
PROVIDERS: Emergency Medicine
DX: R07.9 Chest pain, unspecified (principal); R10.9 Unspecified abdominal pain; R11.0 Nausea; E86.0 Dehydration; I11.0 Hypertensive heart disease with heart failure; I50.9 Heart failure, unspecified; I48.91 Unspecified atrial fibrillation; J44.9 Chronic obstructive pulmonary disease, unspecified; Z86.73 Personal history of transient ischemic attack (TIA), and cerebral infarction without residual deficits; Z86.16 Personal history of COVID-19; Z86.718 Personal history of other venous thrombosis and embolism; Z88.2 Allergy status to sulfonamides; Z91.048 Other nonmedicinal substance allergy status; Z91.040 Latex allergy status; Z88.8 Allergy status to other drugs, medicaments and biological substances; Z79.899 Other long term (current) drug therapy
CPT/HCPCS: 71045; 80053; 81001; 83690; 84484; 85025; 87086; 93005; 93010; 96374; 99285-25; J2405; J7030

== ENCOUNTER 2021-02-21 14:13 | Emergency (ER) | payer MEDICARE, BC ==
[~2021-02-21] VITALS: Ht 160 cm; Wt 81.7 kg
[2021-02-21 14:36] LABS: BASOPHILS ABSOLUTE AUTO 0.05 K/mm3 (0.00-0.23); BASOPHILS PERCENT AUTO 1 % (0-2); EOSINOPHILS ABSOLUTE AUTO 0.09 K/mm3 (0.00-0.68); EOSINOPHILS PERCENT AUTO 2 % (0-6); Hemoglobin 12.3 g/dL (11.5-16.0); IMMATURE GRAN ABSOLUTE AUTO 0.02 K/mm3 (0.00-0.10); IMMATURE GRAN PERCENT AUTO 0 % (0-1); LYMPHOCYTES ABSOLUTE AUTO 1.24 K/mm3 (0.84-5.20); LYMPHOCYTES PERCENT AUTO 21 % (21-46); MONOCYTES ABSOLUTE AUTO 0.46 K/mm3 (0.16-1.47); MONOCYTES PERCENT AUTO 8 % (4-13); Mean Corpuscular HGB 28.9 pg (26.0-34.0); Mean Corpuscular HGB Conc 32.4 g/dL (31.5-36.5); Mean Corpuscular Volume 89 fL (80-100); Mean Platelet Volume 11.5 fL (9.1-12.4); NEUTROPHILS ABSOLUTE AUTO 3.97 K/mm3 (1.96-9.15); NEUTROPHILS PERCENT AUTO 68 % (41-73); Platelet Count 289 K/mm3 (150-400); RDW Coefficient Variation 15.4 % (11.7-14.2); RDW Standard Deviation 49.6 fL (35.1-46.3); Red Blood Cell Count 4.26 M/mm3 (3.80-5.20); White Blood Cell Count 5.83 K/mm3 (4.00-11.30)
[2021-02-21 14:53] LABS: Albumin, Blood 3.4 g/dL (3.4-5.0); Bilirubin, Total 0.7 mg/dL (0.1-1.0); Bun/Creatinine Ratio 14.7 (12.0-20.0); Calcium, Blood 9.3 mg/dL (8.5-10.1); Creatinine, Blood 1.02 mg/dL (0.40-1.00); Globulin, Blood 3.4 g/dL (2.2-4.0); Potassium, Blood 3.5 mmol/L (3.5-5.5); Total Protein, Blood 6.8 g/dL (6.4-8.2)
[2021-02-21 14:55] LABS: Source, Urine Clean Catch
[2021-02-21 15:08] LABS: Appearance, Urine Clear (Clear); Bilirubin, Urine Neg (Neg); Blood, Urine 1+ (Neg); Color, Urine Yellow (P-Yellow); Glucose Qualitative, Urine Neg (Neg); Ketones, Urine Neg (Neg); Leukocyte Esterase, Urine 3+ (Neg); Nitrite, Urine Neg (Neg); Protein, Urine 2+ (Neg); Urobilinogen, Urine NORM (Normal)
[2021-02-21 15:16] LABS: Bacteria Few /hpf; Squamous Epithelial Cells Mod /hpf (Few)
[2021-02-21 15:17] LABS: Amorphous Light (0-Heavy)
[2021-02-21 15:18] LABS: Mucus Light (0-Heavy)
[2021-02-21] MEDS ORDERED: Macrobid 100 M100 MG PO (16:46)
== END 2021-02-21 16:54 | disposition home or self-care (01) ==
LOC: ER 14:13
PROVIDERS: Student in an Organized Health Care Education/Training Program
DX: N39.0 Urinary tract infection, site not specified (principal); I11.0 Hypertensive heart disease with heart failure; I50.9 Heart failure, unspecified; I48.91 Unspecified atrial fibrillation; J44.9 Chronic obstructive pulmonary disease, unspecified; Z79.899 Other long term (current) drug therapy; Z88.2 Allergy status to sulfonamides; Z91.040 Latex allergy status; Z88.8 Allergy status to other drugs, medicaments and biological substances
CPT/HCPCS: 36415; 80053; 81001; 83690; 85025; 87086; 93005; 93010; 99284-25; A9270

== ENCOUNTER → 2021-03-10 | Outpatient (CLI) | payer MEDICARE, BC | END | disposition home or self-care (01) | LOC: LAB SHORT 14:52 → PLD 14:52 | DX: L28.0 Lichen simplex chronicus (principal) | CPT/HCPCS: 88305 ==

== ENCOUNTER 2023-03-28 00:12 | Emergency (ER) | payer MEDICARE, BC ==
[~2023-03-28] VITALS: Ht 160 cm; Wt 89.8 kg
[~2023-03-28 00:12] MED LIST changes: +Bentyl20 MG PO; +CEFD300 PO; +LOSA50 PO; +MIRALAX17 GM PO; +PANT40 PO; +TIZANIDINE HCL2 M1 PO; -TRAZ100 PO
[2023-03-28 00:45] LABS: BASOPHILS ABSOLUTE AUTO 0.06 K/mm3 (0.00-0.23); BASOPHILS PERCENT AUTO 1 % (0-2); EOSINOPHILS ABSOLUTE AUTO 0.29 K/mm3 (0.00-0.68); EOSINOPHILS PERCENT AUTO 2 % (0-6); Hematocrit 44.3 % (33.0-51.0); Hemoglobin 14.4 g/dL (11.5-16.0); IMMATURE GRAN ABSOLUTE AUTO 0.06 K/mm3 (0.00-0.10); IMMATURE GRAN PERCENT AUTO 1 % (0-1); LYMPHOCYTES ABSOLUTE AUTO 1.18 K/mm3 (0.84-5.20); LYMPHOCYTES PERCENT AUTO 9 % (21-46); MONOCYTES ABSOLUTE AUTO 0.59 K/mm3 (0.16-1.47); MONOCYTES PERCENT AUTO 5 % (4-13); Mean Corpuscular HGB 31.3 pg (26.0-34.0); Mean Corpuscular HGB Conc 32.5 g/dL (31.5-36.5); Mean Corpuscular Volume 96 fL (80-100); Mean Platelet Volume 9.9 fL (9.1-12.4); NEUTROPHILS ABSOLUTE AUTO 10.58 K/mm3 (1.96-9.15); NEUTROPHILS PERCENT AUTO 83 % (41-73); Platelet Count 290 K/mm3 (150-400); RDW Coefficient Variation 13.4 % (11.7-14.2); White Blood Cell Count 12.76 K/mm3 (4.00-11.30)
[2023-03-28 01:13] LABS: Albumin, Blood 3.6 g/dL (3.4-5.0); Albumin/Globulin Ratio 0.9 (0.8-1.8); Bilirubin, Total 0.8 mg/dL (0.1-1.0); Bun/Creatinine Ratio 19.2 (12.0-20.0); Calcium, Blood 9.4 mg/dL (8.5-10.1); Creatinine, Blood 1.04 mg/dL (0.40-1.00); Potassium, Blood 4.4 mmol/L (3.5-5.5); Total Protein, Blood 7.6 g/dL (6.4-8.2)
[2023-03-28 02:45] VITALS: BP 131/61
[2023-03-28] MEDS ORDERED: HYDR1TAB94 PO (03:12)
[2023-03-28] MEDS ORDERED: DOCU100 PO (06:26)
== END 2023-03-28 03:39 | disposition home or self-care (01) ==
LOC: ER 00:12
PROVIDERS: Emergency Medicine
DX: R10.32 Left lower quadrant pain (principal); D72.829 Elevated white blood cell count, unspecified; I11.0 Hypertensive heart disease with heart failure; I50.9 Heart failure, unspecified; I48.91 Unspecified atrial fibrillation; J44.9 Chronic obstructive pulmonary disease, unspecified; Z88.2 Allergy status to sulfonamides; Z91.018 Allergy to other foods; Z91.040 Latex allergy status; Z91.048 Other nonmedicinal substance allergy status; Z88.8 Allergy status to other drugs, medicaments and biological substances; Z79.899 Other long term (current) drug therapy
CPT/HCPCS: 74177; 80053; 83605; 83690; 85025; 96374-59; 99285-25; J0780; Q9967

== ENCOUNTER → 2023-07-19 | Outpatient (CLI) | payer MEDICARE, BC ==
[2023-07-19 19:22] LABS: BASOPHILS ABSOLUTE AUTO 0.08 K/mm3 (0.00-0.23); BASOPHILS PERCENT AUTO 1 % (0-2); EOSINOPHILS ABSOLUTE AUTO 0.46 K/mm3 (0.00-0.68); EOSINOPHILS PERCENT AUTO 5 % (0-6); Hemoglobin 12.6 g/dL (11.5-16.0); IMMATURE GRAN ABSOLUTE AUTO 0.08 K/mm3 (0.00-0.10); IMMATURE GRAN PERCENT AUTO 1 % (0-1); LYMPHOCYTES ABSOLUTE AUTO 0.99 K/mm3 (0.84-5.20); LYMPHOCYTES PERCENT AUTO 11 % (21-46); MONOCYTES ABSOLUTE AUTO 0.53 K/mm3 (0.16-1.47); MONOCYTES PERCENT AUTO 6 % (4-13); Mean Corpuscular HGB 31.4 pg (26.0-34.0); Mean Corpuscular HGB Conc 33.2 g/dL (31.5-36.5); Mean Corpuscular Volume 95 fL (80-100); Mean Platelet Volume 10.1 fL (9.1-12.4); NEUTROPHILS ABSOLUTE AUTO 6.58 K/mm3 (1.96-9.15); NEUTROPHILS PERCENT AUTO 75 % (41-73); Platelet Count 241 K/mm3 (150-400); RDW Coefficient Variation 13.7 % (11.7-14.2); Red Blood Cell Count 4.01 M/mm3 (3.80-5.20); White Blood Cell Count 8.72 K/mm3 (4.00-11.30)
[2023-07-19 20:17] LABS: Albumin, Blood 3.5 g/dL (3.4-5.0); Bilirubin, Total 0.9 mg/dL (0.1-1.0); Bun/Creatinine Ratio 15.9 (12.0-20.0); Creatinine, Blood 1.07 mg/dL (0.40-1.00); Globulin, Blood 3.4 g/dL (2.2-4.0); Total Protein, Blood 6.9 g/dL (6.4-8.2)
== END | disposition home or self-care (01) ==
LOC: LAB SHORT 18:39 → LAB 18:39
PROVIDERS: Student in an Organized Health Care Education/Training Program
DX: J44.1 Chronic obstructive pulmonary disease with (acute) exacerbation (principal)
CPT/HCPCS: 80053; 85025

== ENCOUNTER → 2023-08-25 | Outpatient (CLI) | payer MEDICARE, BC ==
[~2023-08-25] MED LIST changes: +AZITHROMYCIN250 MG PO; +BUDESONIDE-FO10.2 G2 INH
[2023-08-25 19:42] LABS: BASOPHILS ABSOLUTE AUTO 0.08 K/mm3 (0.00-0.23); BASOPHILS PERCENT AUTO 1 % (0-2); EOSINOPHILS ABSOLUTE AUTO 0.63 K/mm3 (0.00-0.68); EOSINOPHILS PERCENT AUTO 7 % (0-6); Hematocrit 40.4 % (33.0-51.0); Hemoglobin 13.2 g/dL (11.5-16.0); IMMATURE GRAN ABSOLUTE AUTO 0.04 K/mm3 (0.00-0.10); IMMATURE GRAN PERCENT AUTO 0 % (0-1); LYMPHOCYTES PERCENT AUTO 13 % (21-46); MONOCYTES ABSOLUTE AUTO 0.49 K/mm3 (0.16-1.47); MONOCYTES PERCENT AUTO 5 % (4-13); Mean Corpuscular HGB 31.5 pg (26.0-34.0); Mean Corpuscular HGB Conc 32.7 g/dL (31.5-36.5); Mean Corpuscular Volume 96 fL (80-100); Mean Platelet Volume 10.8 fL (9.1-12.4); NEUTROPHILS ABSOLUTE AUTO 6.73 K/mm3 (1.96-9.15); NEUTROPHILS PERCENT AUTO 73 % (41-73); Platelet Count 270 K/mm3 (150-400); RDW Coefficient Variation 13.4 % (11.7-14.2); RDW Standard Deviation 47.2 fL (35.1-46.3); Red Blood Cell Count 4.19 M/mm3 (3.80-5.20); White Blood Cell Count 9.17 K/mm3 (4.00-11.30)
[2023-08-25 19:54] LABS: Albumin, Blood 3.8 g/dL (3.4-5.0); Albumin/Globulin Ratio 1.2 (0.8-1.8); Bun/Creatinine Ratio 13.9 (12.0-20.0); Calcium, Blood 9.2 mg/dL (8.5-10.1); Creatinine, Blood 1.08 mg/dL (0.40-1.00); Globulin, Blood 3.2 g/dL (2.2-4.0); Potassium, Blood 4.2 mmol/L (3.5-5.5)
== END ==
LOC: LAB SHORT 19:04 → LAB 19:04
PROVIDERS: Family Medicine
DX: J44.1 Chronic obstructive pulmonary disease with (acute) exacerbation (principal)
CPT/HCPCS: 80053; 84145; 85025

== ENCOUNTER 2023-12-22 13:17 | Emergency (ER) | payer MEDICARE, BC ==
[~2023-12-22] VITALS: Ht 160 cm; Wt 89.8 kg
[2023-12-22 13:45] LABS: BASOPHILS ABSOLUTE AUTO 0.06 K/mm3 (0.00-0.23); BASOPHILS PERCENT AUTO 1 % (0-2); EOSINOPHILS ABSOLUTE AUTO 0.25 K/mm3 (0.00-0.68); EOSINOPHILS PERCENT AUTO 3 % (0-6); Hemoglobin 12.3 g/dL (11.5-16.0); IMMATURE GRAN ABSOLUTE AUTO 0.05 K/mm3 (0.00-0.10); IMMATURE GRAN PERCENT AUTO 1 % (0-1); LYMPHOCYTES ABSOLUTE AUTO 1.02 K/mm3 (0.84-5.20); LYMPHOCYTES PERCENT AUTO 12 % (21-46); MONOCYTES ABSOLUTE AUTO 0.48 K/mm3 (0.16-1.47); MONOCYTES PERCENT AUTO 5 % (4-13); Mean Corpuscular HGB 31.7 pg (26.0-34.0); Mean Corpuscular HGB Conc 33.2 g/dL (31.5-36.5); Mean Corpuscular Volume 95 fL (80-100); Mean Platelet Volume 9.8 fL (9.1-12.4); NEUTROPHILS ABSOLUTE AUTO 6.99 K/mm3 (1.96-9.15); NEUTROPHILS PERCENT AUTO 79 % (41-73); Platelet Count 224 K/mm3 (150-400); RDW Coefficient Variation 13.7 % (11.7-14.2); RDW Standard Deviation 48.2 fL (35.1-46.3); Red Blood Cell Count 3.88 M/mm3 (3.80-5.20); White Blood Cell Count 8.85 K/mm3 (4.00-11.30)
[2023-12-22 14:06] LABS: Albumin, Blood 3.5 g/dL (3.4-5.0); Albumin/Globulin Ratio 0.9 (0.8-1.8); Bilirubin, Total 0.5 mg/dL (0.1-1.0); Bun/Creatinine Ratio 18.4 (12.0-20.0); Calcium, Blood 9.4 mg/dL (8.5-10.1); Creatinine, Blood 1.36 mg/dL (0.40-1.00); Globulin, Blood 3.8 g/dL (2.2-4.0); Potassium, Blood 4.5 mmol/L (3.5-5.5); Total Protein, Blood 7.3 g/dL (6.4-8.2)
[2023-12-22] MEDS ORDERED: CALCITRIOL0.25 MC4 PO (14:48)
[2023-12-22] MEDS ORDERED: DULOXETINE HCL60 M1 PO (14:48)
[2023-12-22] MEDS ORDERED: ROSUVASTATIN CAL5 MG PO (14:48)
[2023-12-22] MEDS ORDERED: AMLODIPINE BESYL5 MG PO (14:48)
[2023-12-22] MEDS ORDERED: ALBU90OI INH (14:49)
[2023-12-22] MEDS ORDERED: TRELEGY ELLIPT1 EAC1 IH (14:49)
[2023-12-22 15:33] VITALS: BP 175/88
== END 2023-12-22 15:33 | disposition home or self-care (01) ==
LOC: ER 13:17
PROVIDERS: Emergency Medicine
DX: R07.89 Other chest pain (principal); I11.0 Hypertensive heart disease with heart failure; I50.9 Heart failure, unspecified; J44.9 Chronic obstructive pulmonary disease, unspecified; I48.91 Unspecified atrial fibrillation; Z87.891 Personal history of nicotine dependence; Z86.73 Personal history of transient ischemic attack (TIA), and cerebral infarction without residual deficits; Z79.51 Long term (current) use of inhaled steroids; Z79.899 Other long term (current) drug therapy; Z88.2 Allergy status to sulfonamides; Z91.048 Other nonmedicinal substance allergy status; Z91.040 Latex allergy status; Z88.8 Allergy status to other drugs, medicaments and biological substances
CPT/HCPCS: 71046; 80053; 83690; 84484; 85025; 93005; 93010; 99285-25

== ENCOUNTER 2024-06-01 16:19 | Emergency (ER) | payer MEDICARE, BC ==
[~2024-06-01] VITALS: Ht 160 cm; Wt 98.4 kg
[~2024-06-01 16:19] MED LIST changes: +AMLODIPINE BESYL5 MG PO; +Bentyl10 MG PO; -Bentyl20 MG PO; +CALCITRIOL0.25 MC4 PO; +DULOXETINE HCL60 M1 PO; +ROSUVASTATIN CAL5 MG PO; +TRELEGY ELLIPT1 EAC1 INH
[2024-06-01 16:49] LABS: BASOPHILS ABSOLUTE AUTO 0.05 K/mm3 (0.00-0.23); BASOPHILS PERCENT AUTO 0 % (0-2); EOSINOPHILS ABSOLUTE AUTO 0.02 K/mm3 (0.00-0.68); EOSINOPHILS PERCENT AUTO 0 % (0-6); Hematocrit 35.2 % (33.0-51.0); Hemoglobin 11.7 g/dL (11.5-16.0); IMMATURE GRAN ABSOLUTE AUTO 0.06 K/mm3 (0.00-0.10); IMMATURE GRAN PERCENT AUTO 0 % (0-1); LYMPHOCYTES PERCENT AUTO 6 % (21-46); MONOCYTES ABSOLUTE AUTO 0.95 K/mm3 (0.16-1.47); MONOCYTES PERCENT AUTO 6 % (4-13); Mean Corpuscular HGB 31.8 pg (26.0-34.0); Mean Corpuscular HGB Conc 33.2 g/dL (31.5-36.5); Mean Corpuscular Volume 96 fL (80-100); Mean Platelet Volume 10.1 fL (9.1-12.4); NEUTROPHILS ABSOLUTE AUTO 13.09 K/mm3 (1.96-9.15); NEUTROPHILS PERCENT AUTO 87 % (41-73); Platelet Count 177 K/mm3 (150-400); RDW Standard Deviation 49.4 fL (35.1-46.3); Red Blood Cell Count 3.68 M/mm3 (3.80-5.20); White Blood Cell Count 15.07 K/mm3 (4.00-11.30)
[2024-06-01 17:09] LABS: Albumin, Blood 3.4 g/dL (3.4-5.0); Albumin/Globulin Ratio 0.9 (0.8-1.8); Bilirubin, Total 0.9 mg/dL (0.1-1.0); Bun/Creatinine Ratio 16.5 (12.0-20.0); Calcium, Blood 8.8 mg/dL (8.5-10.1); Creatinine, Blood 1.33 mg/dL (0.40-1.00); Globulin, Blood 3.7 g/dL (2.2-4.0); Potassium, Blood 4.1 mmol/L (3.5-5.5); Total Protein, Blood 7.1 g/dL (6.4-8.2)
[2024-06-01 18:43] LABS: Influenza A, PCR NEGATIVE (NEGATIVE); Influenza B, PCR NEGATIVE (NEGATIVE); Resp Syncytial Virus, PCR NEGATIVE (NEGATIVE); SARS-Cov-2 (COVID-19) PCR, MMC NEGATIVE (NEGATIVE)
[2024-06-01] MEDS ORDERED: PredniSONE 20 MG Tab PO ONE (20:20)
[2024-06-01] MEDS ORDERED: Azithromycin 250 MG Tab PO ONE (20:20)
[2024-06-01] MEDS ORDERED: Ipratropium/Albuterol SulF 2.5-0.5MG/3 ML Amp INH ONE (20:20)
[2024-06-01] MEDS ORDERED: Benzonatate 100 MG Cap PO ONE (20:20)
[2024-06-01] MEDS ORDERED: BENZ100A PO (20:34)
[2024-06-01] MEDS ORDERED: AZIT250 PO (20:34)
[2024-06-01 21:04] VITALS: BP 141/64
[2024-06-03] MEDS ORDERED: LOSARTAN POTAS100 M1 PO (11:18)
[2024-06-03] MEDS ORDERED: METO50ER PO (11:19)
[2024-06-03] MEDS ORDERED: TRAZ150T57 PO (11:20)
[2024-06-03] MEDS ORDERED: THERA-D2000 UNIT PO (11:21)
[2024-06-03] MEDS ORDERED: NITR.4SL SL (11:21)
[2024-06-03] MEDS ORDERED: NAPR500 PO (11:22)
[2024-06-08] MEDS ORDERED: METO25 PO (12:47)
[2024-06-08] MEDS ORDERED: VISBIOME 112.51 EACH PO (12:49)
[2024-06-08] MEDS ORDERED: GABA100 PO (12:49)
[2024-06-08] MEDS ORDERED: SENN187 PO (12:49)
[2024-06-08] MEDS ORDERED: DOXY100 PO (12:50)
== END 2024-06-01 21:05 | disposition home or self-care (01) ==
LOC: ER 16:19
PROVIDERS: Physician Assistant
DX: J44.9 Chronic obstructive pulmonary disease, unspecified (principal); Z88.2 Allergy status to sulfonamides; Z91.040 Latex allergy status; Z79.899 Other long term (current) drug therapy; I11.0 Hypertensive heart disease with heart failure; I50.9 Heart failure, unspecified; I48.91 Unspecified atrial fibrillation; Z87.891 Personal history of nicotine dependence
CPT/HCPCS: 0241U; 71046; 80053; 84484; 85025; 93005; 93010; 94640; 94664; 99285-25; A9270; J7512

== ENCOUNTER 2024-06-02 19:26 | Inpatient (IN) | payer MEDICARE, BC ==
[~2024-06-02] VITALS: Ht 160 cm; Wt 97.5 kg
[2024-06-02] MEDS ORDERED: Ipratropium Bromide INH 0.02% 0.5 mg/2.5ML Vial INH SCH ×2 (19:50→21:45)
[2024-06-02] MEDS ORDERED: Albuterol 2.5 MG/3 ML VIAL INH SCH ×2 (19:50→21:45)
[2024-06-02 20:01] LABS: BASOPHILS ABSOLUTE AUTO 0.03 K/mm3 (0.00-0.23); BASOPHILS PERCENT AUTO 0 % (0-2); EOSINOPHILS ABSOLUTE AUTO 0.01 K/mm3 (0.00-0.68); EOSINOPHILS PERCENT AUTO 0 % (0-6); Hematocrit 34.5 % (33.0-51.0); Hemoglobin 11.8 g/dL (11.5-16.0); IMMATURE GRAN ABSOLUTE AUTO 0.14 K/mm3 (0.00-0.10); IMMATURE GRAN PERCENT AUTO 1 % (0-1); LYMPHOCYTES ABSOLUTE AUTO 1.41 K/mm3 (0.84-5.20); LYMPHOCYTES PERCENT AUTO 8 % (21-46); MONOCYTES ABSOLUTE AUTO 1.17 K/mm3 (0.16-1.47); MONOCYTES PERCENT AUTO 7 % (4-13); Mean Corpuscular HGB 31.8 pg (26.0-34.0); Mean Corpuscular HGB Conc 34.2 g/dL (31.5-36.5); Mean Corpuscular Volume 93 fL (80-100); Mean Platelet Volume 10.5 fL (9.1-12.4); NEUTROPHILS ABSOLUTE AUTO 14.03 K/mm3 (1.96-9.15); NEUTROPHILS PERCENT AUTO 84 % (41-73); Platelet Count 216 K/mm3 (150-400); RDW Coefficient Variation 13.8 % (11.7-14.2); RDW Standard Deviation 47.3 fL (35.1-46.3); Red Blood Cell Count 3.71 M/mm3 (3.80-5.20); White Blood Cell Count 16.79 K/mm3 (4.00-11.30)
[2024-06-02 20:14] LABS: Albumin, Blood 3.3 g/dL (3.4-5.0); Albumin/Globulin Ratio 0.8 (0.8-1.8); Bilirubin, Total 0.5 mg/dL (0.1-1.0); Bun/Creatinine Ratio 23.9 (12.0-20.0); Creatinine, Blood 1.38 mg/dL (0.40-1.00); Globulin, Blood 4.3 g/dL (2.2-4.0); Total Protein, Blood 7.6 g/dL (6.4-8.2)
[2024-06-02] MEDS ORDERED: MethylPREDNISolone Sod Succ 125 MG Vial IV ONE (21:45)
[2024-06-02] MEDS ORDERED: Ondansetron HCl 2 MG / ML 2ML Vial IV ONE (21:45)
[2024-06-02] MEDS ORDERED: Morphine Sulfate 4 MG/1 ML Injection IV ONE (21:45)
[2024-06-02] MEDS ORDERED: CefTRIAXone Sodium 1,000 MG in NS 100 ML IV ONE (22:05)
[2024-06-02] MEDS ORDERED: Azithromycin 500 MG in NS 250 ML IV ONE (22:05)
[2024-06-02 22:18] LABS: Base Excess Venous -4.7 mmol/L; Bicarbonate Venous 20.6 mmol/L (24.0-30.0); PCO2 Venous 39.7 mmHg (38-42); pH Blood Venous 7.34 (7.34-7.37)
[2024-06-02 23:55] LABS: Influenza A, PCR NEGATIVE (NEGATIVE); Influenza B, PCR NEGATIVE (NEGATIVE); Resp Syncytial Virus, PCR NEGATIVE (NEGATIVE); SARS-Cov-2 (COVID-19) PCR, MMC NEGATIVE (NEGATIVE)
[2024-06-03] MEDS ORDERED: Ipratropium/Albuterol SulF 2.5-0.5MG/3 ML Amp INH SCH (01:00)
[2024-06-03] MEDS ORDERED: Albuterol 2.5 MG/3 ML VIAL INH PRN (01:00)
[2024-06-03 01:54] VITALS: BP 98/87
[2024-06-03 01:57] VITALS: BP 123/85
[2024-06-03 02:10] LABS: BASOPHILS ABSOLUTE AUTO 0.03 K/mm3 (0.00-0.23); BASOPHILS PERCENT AUTO 0 % (0-2); EOSINOPHILS PERCENT AUTO 0 % (0-6); Hematocrit 36.3 % (33.0-51.0); Hemoglobin 12.1 g/dL (11.5-16.0); IMMATURE GRAN ABSOLUTE AUTO 0.22 K/mm3 (0.00-0.10); IMMATURE GRAN PERCENT AUTO 1 % (0-1); LYMPHOCYTES ABSOLUTE AUTO 0.36 K/mm3 (0.84-5.20); LYMPHOCYTES PERCENT AUTO 2 % (21-46); MONOCYTES ABSOLUTE AUTO 0.64 K/mm3 (0.16-1.47); MONOCYTES PERCENT AUTO 4 % (4-13); Mean Corpuscular HGB 31.3 pg (26.0-34.0); Mean Corpuscular HGB Conc 33.3 g/dL (31.5-36.5); Mean Corpuscular Volume 94 fL (80-100); Mean Platelet Volume 10.2 fL (9.1-12.4); NEUTROPHILS ABSOLUTE AUTO 17.19 K/mm3 (1.96-9.15); NEUTROPHILS PERCENT AUTO 93 % (41-73); Platelet Count 233 K/mm3 (150-400); RDW Coefficient Variation 14.2 % (11.7-14.2); RDW Standard Deviation 48.9 fL (35.1-46.3); Red Blood Cell Count 3.86 M/mm3 (3.80-5.20); White Blood Cell Count 18.44 K/mm3 (4.00-11.30)
[2024-06-03 02:30] LABS: Albumin, Blood 3.4 g/dL (3.4-5.0); Albumin/Globulin Ratio 0.8 (0.8-1.8); Bilirubin, Total 0.5 mg/dL (0.1-1.0); Bun/Creatinine Ratio 24.1 (12.0-20.0); Calcium, Blood 8.6 mg/dL (8.5-10.1); Creatinine, Blood 1.62 mg/dL (0.40-1.00); Globulin, Blood 4.5 g/dL (2.2-4.0); Potassium, Blood 4.1 mmol/L (3.5-5.5); Total Protein, Blood 7.9 g/dL (6.4-8.2)
[2024-06-03] MEDS ORDERED: FentaNYL Citrate 50 MCG/ML 2 ML Injection IV PRN (02:35)
--- NOTE | 2024-06-03 05:06 | NUR ---
ADMITTED FROM ER AFTER 2 VISITS ON 06/02/24. ADMITED WITH RESP FAILURE AND L SHOULDER/RIB PAIN FROM A FALL. AAOX4. TELE, SR IN LOW 70'S. 2L O2 VIA NC, BASELINE RA. REPORTS MABULATES WITH WALKER OR CANE, DEPENDS HOW SHE IS FEELING AND FOR LONGER DISTANCES USES A WC. REC'D ORDERS FROM HOSPITALIST, FENTANYL FOR PAIN. SOCIAL SERVICE CONSULT FOR ASSISTANCE WITH HELP WITH VERBALLY ABUSIVE SON WHO DRINKS ALL DAY AND FINACIAL STRAIN.
[2024-06-03 07:15] VITALS: BP 139/67
[2024-06-03] MEDS ORDERED: Enoxaparin 40 MG/0.4 ML SYR SC SCH (09:00)
[2024-06-03] MEDS ORDERED: Lactobacil 2-S.Thermo-Bifido 1 1 Cap PO SCH (09:00)
[2024-06-03] MEDS ORDERED: MethylPREDNISolone Sod Succ 125 MG Vial IV SCH ×2 (09:00)
[2024-06-03] MEDS ORDERED: LOSARTAN POTAS100 M1 PO ×2 (11:18)
[2024-06-03] MEDS ORDERED: METO50ER PO ×2 (11:19)
[2024-06-03] MEDS ORDERED: TRAZ150T57 PO ×2 (11:20)
[2024-06-03] MEDS ORDERED: NITR.4SL SL ×2 (11:21)
[2024-06-03] MEDS ORDERED: THERA-D2000 UNIT PO ×2 (11:21)
[2024-06-03] MEDS ORDERED: NAPR500 PO ×2 (11:22)
[2024-06-03 11:32] VITALS: BP 119/80
[2024-06-03] MEDS ORDERED: Dicyclomine HCL 10 MG Capsule PO PRN (12:35)
[2024-06-03] MEDS ORDERED: Docusate Sodium 100 MG Cap PO SCH (12:40)
[2024-06-03] MEDS ORDERED: Mometasone/Formoterol MDI 100/5 mcg 13 GM INH SCH (12:45)
[2024-06-03] MEDS ORDERED: Ipratropium Bromide INH 0.02% 0.5 mg/2.5ML Vial INH SCH (12:45)
[2024-06-03 15:47] VITALS: BP 137/75
--- NOTE | 2024-06-03 17:21 | NUR ---
SHIFT SUMMARY PT AOX4, COOPERATIVE, ABLE TO MAKE NEEDS KNOWN. PT DID HAVE FEW COMPLAINTS OF PAIN THIS SHIFT, MEDICATED PER EMAR. PT IS CONTINENT, USING COMMODE APPROPRIATELY. IV DRESSING WAS CHANGED, ADJUSTED, AND CONNECTIONS WERE TIGHTENED TO DUE BLOOD LEAKING FROM CONNECTIONS. PT HAS BEEN WHEEZY ALL SHIFT WITH O2 SATS REMAINING ABOVE 90%. TOLERATING PO AND IV MEDICATIONS APPROPRIATELY. BED IN LOWEST POSITION, CALL LIGHT WITHIN REACH.
[2024-06-03 19:21] VITALS: BP 128/76
[2024-06-03] MEDS ORDERED: NS 250 ML IV PRN (20:30)
[2024-06-03] MEDS ORDERED: TraZODone HCl 100 MG Tab PO SCH (21:00)
[2024-06-03] MEDS ORDERED: Azithromycin 500 MG in NS 250 ML IV SCH (21:00)
[2024-06-03] MEDS ORDERED: CefTRIAXone Sodium 1,000 MG in NS 100 ML IV SCH (21:00)
[2024-06-04 00:17] VITALS: BP 126/72
[2024-06-04 03:36] VITALS: BP 139/79
[2024-06-04 06:54] LABS: BASOPHILS ABSOLUTE AUTO 0.02 K/mm3 (0.00-0.23); BASOPHILS PERCENT AUTO 0 % (0-2); EOSINOPHILS PERCENT AUTO 0 % (0-6); Hematocrit 31.6 % (33.0-51.0); Hemoglobin 10.6 g/dL (11.5-16.0); IMMATURE GRAN ABSOLUTE AUTO 0.27 K/mm3 (0.00-0.10); IMMATURE GRAN PERCENT AUTO 2 % (0-1); LYMPHOCYTES ABSOLUTE AUTO 0.44 K/mm3 (0.84-5.20); LYMPHOCYTES PERCENT AUTO 3 % (21-46); MONOCYTES ABSOLUTE AUTO 0.43 K/mm3 (0.16-1.47); MONOCYTES PERCENT AUTO 3 % (4-13); Mean Corpuscular HGB 31.5 pg (26.0-34.0); Mean Corpuscular HGB Conc 33.5 g/dL (31.5-36.5); Mean Corpuscular Volume 94 fL (80-100); Mean Platelet Volume 10.7 fL (9.1-12.4); NEUTROPHILS ABSOLUTE AUTO 12.59 K/mm3 (1.96-9.15); NEUTROPHILS PERCENT AUTO 92 % (41-73); Platelet Count 203 K/mm3 (150-400); RDW Coefficient Variation 14.1 % (11.7-14.2); RDW Standard Deviation 47.8 fL (35.1-46.3); Red Blood Cell Count 3.36 M/mm3 (3.80-5.20); White Blood Cell Count 13.75 K/mm3 (4.00-11.30)
[2024-06-04 07:15] LABS: Bun/Creatinine Ratio 27.4 (12.0-20.0); Calcium, Blood 8.6 mg/dL (8.5-10.1); Creatinine, Blood 1.68 mg/dL (0.40-1.00); Potassium, Blood 4.1 mmol/L (3.5-5.5)
[2024-06-04 08:08] VITALS: BP 129/64
[2024-06-04] MEDS ORDERED: Calcitriol 0.25 MCG Cap PO SCH (09:00)
[2024-06-04] MEDS ORDERED: Cholecalciferol 1000 Unit Tablet (=25MCG) PO SCH (09:00)
[2024-06-04] MEDS ORDERED: DULoxetine HCL 60 MG Capsule DR PO SCH (09:00)
[2024-06-04] MEDS ORDERED: Atenolol 50 MG Tab PO SCH (09:00)
[2024-06-04] MEDS ORDERED: Furosemide 10 MG/ML 4ML Vial IV SCH (11:00)
[2024-06-04] MEDS ORDERED: HYDROmorphone HCl/Pf 1MG SYR IV PRN (11:05)
[2024-06-04 15:28] VITALS: BP 138/97
[2024-06-04 16:11] VITALS: BP 149/76
--- NOTE | 2024-06-04 17:54 | NUR ---
SHIFT SUMMARY PT AOX4, COOPERATIVE, ABLE TO MAKE NEEDS KNOWN. USES COMMODE APPROPRIATELY, UTILIZES PULLUPS FOR STRESS INC. PT COMPLAINT OF PAIN, MEDICATING PER EMAR. BED IN LOWES POSITION, CALL LIGHT WITHIN REACH.
[2024-06-04] MEDS ORDERED: GuaiFENesin 600 MG TabCR PO SCH (21:00)
[2024-06-05] VITALS (7 sets, daily range): BP systolic 121–167; BP diastolic 71–90
[2024-06-05 06:37] LABS: BASOPHILS ABSOLUTE AUTO 0.09 K/mm3 (0.00-0.23); BASOPHILS PERCENT AUTO 1 % (0-2); EOSINOPHILS ABSOLUTE AUTO 0.02 K/mm3 (0.00-0.68); EOSINOPHILS PERCENT AUTO 0 % (0-6); Hematocrit 35.9 % (33.0-51.0); Hemoglobin 11.9 g/dL (11.5-16.0); IMMATURE GRAN PERCENT AUTO 6 % (0-1); LYMPHOCYTES ABSOLUTE AUTO 0.52 K/mm3 (0.84-5.20); LYMPHOCYTES PERCENT AUTO 4 % (21-46); MONOCYTES PERCENT AUTO 5 % (4-13); Mean Corpuscular HGB 31.1 pg (26.0-34.0); Mean Corpuscular HGB Conc 33.1 g/dL (31.5-36.5); Mean Corpuscular Volume 94 fL (80-100); NEUTROPHILS ABSOLUTE AUTO 10.78 K/mm3 (1.96-9.15); NEUTROPHILS PERCENT AUTO 84 % (41-73); Platelet Count 240 K/mm3 (150-400); RDW Coefficient Variation 14.1 % (11.7-14.2); RDW Standard Deviation 48.2 fL (35.1-46.3); Red Blood Cell Count 3.83 M/mm3 (3.80-5.20); White Blood Cell Count 12.91 K/mm3 (4.00-11.30)
[2024-06-05 06:55] LABS: Bun/Creatinine Ratio 31.5 (12.0-20.0); Calcium, Blood 9.3 mg/dL (8.5-10.1); Creatinine, Blood 1.49 mg/dL (0.40-1.00); Potassium, Blood 4.1 mmol/L (3.5-5.5)
[2024-06-05 07:17] LABS: BAND PERCENT MAN 1 % (0-8); BASOPHILS PERCENT MAN 0 % (0-2); EOSINOPHILS PERCENT MAN 0 % (0-6); LYMPHOCYTES ABSOLUTE MAN 0.38 K/mm3 (0.84-5.20); LYMPHOCYTES PERCENT MAN 3 % (21-46); MONOCYTES ABSOLUTE MAN 0.38 K/mm3 (0.16-1.47); MONOCYTES PERCENT MAN 3 % (4-13); NEUTROPHILS ABSOLUTE MAN 12.13 K/mm3 (1.96-9.15); SEG NEUTROPHILS PERCENT MAN 93 % (41-73); TOTAL CELLS COUNTED 100
[2024-06-05] MEDS ORDERED: DiphenhydrAMINE HCl 50 MG Cap PO ONE (07:20)
[2024-06-05] MEDS ORDERED: Zolpidem Tartrate 5 MG Tab PO PRN (07:55)
[2024-06-05] MEDS ORDERED: LevoFLOXacin 500MG/D5W 100ML 100 ML IV ONE (08:00)
[2024-06-05] MEDS ORDERED: Metoprolol Tartrate 25 MG Tab PO SCH (09:00)
[2024-06-05] MEDS ORDERED: AmLODIPine Besylate 5 MG Tab PO SCH (09:00)
[2024-06-05] MEDS ORDERED: Losartan Potassium 50 MG Tab PO SCH (09:00)
[2024-06-05] MEDS ORDERED: Calcium Carbonate 500 MG Tab Chew PO PRN (11:00)
--- NOTE | 2024-06-05 17:51 | NUR ---
NO CHANGES FOR PT TODAY. PT HAD NO C/O PAIN, SOB, OR CHEST PAIN
[2024-06-05] MEDS ORDERED: TraZODone HCl 100 MG Tab PO SCH (21:00)
[2024-06-06 03:39] VITALS: BP 149/89
[2024-06-06 06:39] LABS: Bun/Creatinine Ratio 31.5 (12.0-20.0); Calcium, Blood 8.9 mg/dL (8.5-10.1); Creatinine, Blood 1.3 mg/dL (0.40-1.00); Potassium, Blood 4.4 mmol/L (3.5-5.5)
[2024-06-06 07:13] VITALS: BP 150/78
[2024-06-06 07:45] LABS: Hematocrit 34.3 % (33.0-51.0); Hemoglobin 11.7 g/dL (11.5-16.0); Mean Corpuscular HGB 31.5 pg (26.0-34.0); Mean Corpuscular HGB Conc 34.1 g/dL (31.5-36.5); Mean Corpuscular Volume 93 fL (80-100); Mean Platelet Volume 10.3 fL (9.1-12.4); Platelet Count 252 K/mm3 (150-400); RDW Coefficient Variation 14.1 % (11.7-14.2); RDW Standard Deviation 47.8 fL (35.1-46.3); Red Blood Cell Count 3.71 M/mm3 (3.80-5.20); White Blood Cell Count 12.86 K/mm3 (4.00-11.30)
[2024-06-06 08:15] LABS: BASOPHILS PERCENT MAN 0 % (0-2); EOSINOPHILS PERCENT MAN 0 % (0-6); LYMPHOCYTES ABSOLUTE MAN 0.38 K/mm3 (0.84-5.20); LYMPHOCYTES PERCENT MAN 3 % (21-46); METAMYELOCYTE ABSOLUTE MAN 0.12 K/mm3 (0.00-0.00); METAMYELOCYTE PERCENT MAN 1 % (0-0); MONOCYTES ABSOLUTE MAN 0.77 K/mm3 (0.16-1.47); MONOCYTES PERCENT MAN 6 % (4-13); NEUTROPHILS ABSOLUTE MAN 11.57 K/mm3 (1.96-9.15); SEG NEUTROPHILS PERCENT MAN 90 % (41-73); TOTAL CELLS COUNTED 100
[2024-06-06] MEDS ORDERED: HYDROmorphone HCl 2 MG Tab PO PRN (08:20)
[2024-06-06] MEDS ORDERED: Acetaminophen 325 MG TABLET PO PRN (08:25)
[2024-06-06] MEDS ORDERED: PredniSONE 20 MG Tab PO SCH (09:00)
[2024-06-06] MEDS ORDERED: LevoFLOXacin 250MG/D5W 50ML 50 ML IV SCH (09:00)
[2024-06-06] MEDS ORDERED: Polyethylene Glycol 3350 17 gm PO ONE (09:10)
[2024-06-06] MEDS ORDERED: Ondansetron 4 MG SoluTab SL PRN (09:10)
[2024-06-06] MEDS ORDERED: Bisacodyl 5 MG TabEC PO ONE (09:10)
[2024-06-06] MEDS ORDERED: Doxycycline Hyclate 100 MG in Dextrose 5% 250 ML IV SCH (11:32)
[2024-06-06 15:27] VITALS: BP 142/85
--- NOTE | 2024-06-06 17:36 | NUR ---
SHIFT SUMMARY: PT A/O @4. PLEASANT AND COOPERATIVE WITH CARE. 1PA c FWW TO BSC. PT C/O NAUSEA EARLY THIS AM AND SEVERE L. SIDED PAIN SHOOTING UP TO SHOULDER. PO PAIN AND NAUSEA MEDICATION PROVIDED. SPOKE WITH DR. MCELROY PT STATED NO BM FOR 5 DAYS. REQUESTED ORDER FOR DULCOLAX AND MIRALAX. BOTH PROVIDED WITH NO SUCCESS. PT C/O PAIN IN RAC IV WHEN FINISHING FIRST IV ABX. NEW IV PLACED BY MARTIN CONNELL RN W/O COMPLICATIONS. PT CURRENTLY RESTING IN BED. CALL LIGHT IN REACH. BED IN LOWEST POSITION.
[2024-06-06 20:51] VITALS: BP 154/80
[2024-06-07 05:08] VITALS: BP 144/77
[2024-06-07 05:48] LABS: Hematocrit 34.7 % (33.0-51.0); Hemoglobin 11.8 g/dL (11.5-16.0); Mean Corpuscular HGB 31.5 pg (26.0-34.0); Mean Corpuscular Volume 93 fL (80-100); Mean Platelet Volume 9.9 fL (9.1-12.4); Platelet Count 245 K/mm3 (150-400); RDW Coefficient Variation 13.9 % (11.7-14.2); RDW Standard Deviation 47.1 fL (35.1-46.3); Red Blood Cell Count 3.75 M/mm3 (3.80-5.20); White Blood Cell Count 12.11 K/mm3 (4.00-11.30)
[2024-06-07 06:10] LABS: BAND PERCENT MAN 1 % (0-8); BASOPHILS PERCENT MAN 0 % (0-2); EOSINOPHILS PERCENT MAN 0 % (0-6); LYMPHOCYTES ABSOLUTE MAN 1.21 K/mm3 (0.84-5.20); LYMPHOCYTES PERCENT MAN 10 % (21-46); METAMYELOCYTE ABSOLUTE MAN 0.24 K/mm3 (0.00-0.00); METAMYELOCYTE PERCENT MAN 2 % (0-0); MONOCYTES ABSOLUTE MAN 0.72 K/mm3 (0.16-1.47); MONOCYTES PERCENT MAN 6 % (4-13); MYELOCYTE ABSOLUTE MAN 0.24 K/mm3 (0.00-0.00); MYELOCYTE PERCENT MAN 2 % (0-0); NEUTROPHILS ABSOLUTE MAN 9.68 K/mm3 (1.96-9.15); SEG NEUTROPHILS PERCENT MAN 79 % (41-73); TOTAL CELLS COUNTED 100
[2024-06-07 06:14] LABS: Albumin, Blood 2.8 g/dL (3.4-5.0); Albumin/Globulin Ratio 0.7 (0.8-1.8); Bilirubin, Total 0.6 mg/dL (0.1-1.0); Bun/Creatinine Ratio 23.2 (12.0-20.0); Calcium, Blood 9.4 mg/dL (8.5-10.1); Creatinine, Blood 1.38 mg/dL (0.40-1.00); Globulin, Blood 3.8 g/dL (2.2-4.0); Potassium, Blood 4.1 mmol/L (3.5-5.5); Total Protein, Blood 6.6 g/dL (6.4-8.2)
[2024-06-07 07:40] VITALS: BP 156/74
[2024-06-07] MEDS ORDERED: Sennosides 8.6 MG Tab PO SCH (10:30)
[2024-06-07] MEDS ORDERED: Polyethylene Glycol 3350 17 gm PO SCH (10:30)
[2024-06-07] MEDS ORDERED: Gabapentin 100 MG Cap PO SCH (14:00)
[2024-06-07] MEDS ORDERED: TraMADol HCl 50 MG Tab PO PRN (14:45)
[2024-06-07 16:12] VITALS: BP 139/69
--- NOTE | 2024-06-07 16:57 | NUR ---
SHIFT SUMMARY: PT A&O X4. PLEASANT AND COOPERATIVE. 1PA TO BSC. PHYSICAL THERAPY EVALUATION COMPLETED THIS SHIFT. LESS WHEEZING NOTED TODAY. PT STILL C/O PAIN IN L. RIB UP TO SHOULDER. PAIN MEDICATION CHANGED TO TRAMADOL AND GABAPENTIN ORDERED TID. PT CONTINUES ON 2L NC. CONT BIOX IN PLACE. TELE IN PLACE RUNNING SINUS RHYHTM PVC PAC WITH RATE IN THE 60'S. CALL LIGHT IN REACH. BED IN LOWEST POSITION.
[2024-06-07 19:19] VITALS: BP 139/74
[2024-06-08 01:05] VITALS: BP 138/79
--- NOTE | 2024-06-08 04:17 | NUR ---
PT A&O X4, VS WNL, REMAINS ON O2 @ 2L, TELE NSR 80'S. PT ON CONTINUOUS OXCIMETRY. RECIEVES ROUTINE NEBS. DENIES PAIN. UP TO BSC INDEPENDENTLY. PT WITH NO BM FOR 6DAYS, BOWEL CARE BEGAN AND DID HAVE SEVERAL SMALL HARD STOOLS THIS SHIFT. NON-PRODUCTIVE COUGH, TAKING GUIFINESSIN TABS. PT WITH NEGATIVE BC X4DAYS. PLAN TO D/C TO HOME WITH HH.
[2024-06-08 04:55] VITALS: BP 168/98
[2024-06-08 07:18] LABS: Albumin, Blood 2.6 g/dL (3.4-5.0); Albumin/Globulin Ratio 0.7 (0.8-1.8); Bilirubin, Total 0.5 mg/dL (0.1-1.0); Bun/Creatinine Ratio 24.1 (12.0-20.0); Calcium, Blood 9.1 mg/dL (8.5-10.1); Creatinine, Blood 1.16 mg/dL (0.40-1.00); Globulin, Blood 3.5 g/dL (2.2-4.0); Potassium, Blood 4.2 mmol/L (3.5-5.5); Total Protein, Blood 6.1 g/dL (6.4-8.2)
[2024-06-08 07:27] VITALS: BP 147/79
[2024-06-08] MEDS ORDERED: PredniSONE 20 MG Tab PO SCH (09:00)
[2024-06-08] MEDS ORDERED: METO25 PO ×2 (12:47)
[2024-06-08] MEDS ORDERED: GABA100 PO ×2 (12:49)
[2024-06-08] MEDS ORDERED: SENN187 PO ×2 (12:49)
[2024-06-08] MEDS ORDERED: VISBIOME 112.51 EACH PO ×2 (12:49)
[2024-06-08] MEDS ORDERED: DOXY100 PO ×2 (12:50)
--- NOTE | 2024-06-08 12:55 | NUR ---
DISCHARGE PHARMACY PT AWARE THE [facility] IS CLOSED. SHE DOESN'T WANT HER DISCHARGE PERSCIPTIONS FAXED TO AN OPEN PHARMACY. SHE IS AWARE THAT SHE NEEDS HER ANTIBIOTICS. SHE WILL LET US KNOW IF SHE CHANGES HER MIND. CARE ONGOING.
--- NOTE | 2024-06-08 15:54 | NUR ---
PT WAS DISCHARGED UNDER MD ORDERS. ALL PIVS REMOVED AND INSTRUCTIONS IN HAND
== END 2024-06-08 15:40 | disposition home health service (06) | DRG 871 ==
LOC: ER 19:26 → MEDS 06-03 01:19 → ER 06-03 01:43 → MEDS 06-03 01:48
PROVIDERS: Family Medicine; Internal Medicine; Student in an Organized Health Care Education/Training Program; ADMIT Internal Medicine
DX: A41.9 Sepsis, unspecified organism (principal); J18.9 Pneumonia, unspecified organism; J96.01 Acute respiratory failure with hypoxia; I69.354 Hemiplegia and hemiparesis following cerebral infarction affecting left non-dominant side; J44.0 Chronic obstructive pulmonary disease with (acute) lower respiratory infection; J44.1 Chronic obstructive pulmonary disease with (acute) exacerbation; I13.0 Hypertensive heart and chronic kidney disease with heart failure and stage 1 through stage 4 chronic kidney disease, or unspecified chronic kidney disease; I50.32 Chronic diastolic (congestive) heart failure; E87.1 Hypo-osmolality and hyponatremia; I48.91 Unspecified atrial fibrillation; M54.9 Dorsalgia, unspecified; G89.29 Other chronic pain; Z96.653 Presence of artificial knee joint, bilateral; M20.41 Other hammer toe(s) (acquired), right foot; M60.9 Myositis, unspecified; T36.1X5A Adverse effect of cephalosporins and other beta-lactam antibiotics, initial encounter; R07.81 Pleurodynia; R53.1 Weakness; N18.32 Chronic kidney disease, stage 3b; F41.9 Anxiety disorder, unspecified; F32.A Depression, unspecified; Z90.49 Acquired absence of other specified parts of digestive tract; Z90.710 Acquired absence of both cervix and uterus; Z88.2 Allergy status to sulfonamides; Z91.048 Other nonmedicinal substance allergy status; Z91.040 Latex allergy status; Z88.8 Allergy status to other drugs, medicaments and biological substances; Z91.018 Allergy to other foods; Z79.899 Other long term (current) drug therapy; Z79.51 Long term (current) use of inhaled steroids; Z79.52 Long term (current) use of systemic steroids; Z79.2 Long term (current) use of antibiotics; Z87.19 Personal history of other diseases of the digestive system; I69.392 Facial weakness following cerebral infarction; Z87.891 Personal history of nicotine dependence; W18.39XA Other fall on same level, initial encounter
CPT/HCPCS: 0241U; 36415; 71101; 71260; 80048; 80053; 82803; 83605; 83880; 84145; 84484; 85025; 87040; 93005; 93010; 94640; 94644; 94645; 94664; 94761; 94762; 96365; 96375; 97110; 97161; 97530; 99285-25; A9270; J0456; J0696; J1171; J1650; J1940; J1956; J2270; J2405; J2919; J3010; J7050; J7060; J7512; Q9967